=== PATIENT | female | born 1975 | race Caucasian/White ===

== ENCOUNTER 2016-09-15 20:20 | Emergency (ER) | payer BC, OTHER ==
[~2016-09-15] VITALS: Ht 154.9 cm; Wt 102.8 kg
[~2016-09-15 20:20] MED LIST: INDSR80 PO; PRM625 PO
[2016-09-15 20:25] VITALS: TEMP 37; Ht 154.9 cm; Wt 102.8 kg
[2016-09-15] MEDS ORDERED: DIPH1CAP11 PO (21:20)
[2016-09-15] MEDS ORDERED: CYM/30 PO (21:20)
[2016-09-15] MEDS ORDERED: KETOROLAC TROMETHAMINE 30 MG/ML VIAL IV STA (21:41)
--- NOTE | 2016-09-15 21:42 | EMERGENCY ROOM VISIT NOTE ---
History Report prepared by Elma: David Bobby Under the Supervision of: Dr. Luis Wen M.D. First contact with patient: 21:36 Chief Complaint: KNEEPAIN Stated Complaint: L KNEE PAIN,WARM TO TOUCH,POSSIBLE BLOOD CLOT History of Present Illness The patient is a 41 year old female who presents to the Emergency Room with complaints of worsening left knee pain that started a week ago. She denies any injury to the knee. The patient says that the pain started as an achiness, and has progressively worsened. She has no history of blood clots. The patient has no chronic medical problems. She denies any chest pain, shortness of breath, or abdominal pain. The patient has no chance of . She has no history of joint problems or any recent exposure to ticks. Source of History: patient Onset: A week ago Position: knee (left) Quality: ache Timing: worsening Associated Symptoms: No chest pain, No SOB, No abdominal pain Review of Systems See HPI for pertinent positives & negatives. A total of 10 systems reviewed and were otherwise negative. Past Medical & Surgical Medical Problems: (1) No chronic problems Old medical records were reviewed. Nurse's notes were reviewed and I agree with. Family History No pertinent family history Social History Smoking Status: Current Every Day Smoker Drug Use: none Marital Status: Occupation Status: unemployed Current/Historical Medications Scheduled Duloxetine Hcl (Cymbalta), 30 MG PO DAILY Lamotrigine (Lamictal), 100 MG PO DAILY Scheduled PRN Clorazepate Dipotassium (Clorazepate Dipotassium), 7.5 MG PO TID PRN for Anxiety Diphenhydramine Hcl (Sleep) (Sleep-Aid Maximum Strengt), 50-100 MG PO HS PRN for Sleep Oxycodone Immediate Rel Tab (Roxicodone Ir), 1-2 TAB PO Q4H PRN for Severe Pain Allergies Coded Allergies: Macrolides (Unverified Allergy, Mild, 02/01/15) Penicillins (Unverified Allergy, Mild, 02/01/15) Acetaminophen (Unverified Adverse Reaction, Mild, 02/01/15) Codeine (Unverified Adverse Reaction, Mild, 02/01/15) Morphine (Unverified Adverse Reaction, Mild, 02/01/15) N/V Oxycodone (Unverified Adverse Reaction, Mild, 02/01/15) Physical Exam Vital Signs Date Time Temp Pulse Resp B/P (MAP) Pulse Ox O2 Delivery O2 Flow Rate FiO2 09/16/16 00:24 72 18 152/87 97 09/15/16 20:25 37.0 85 20 193/106 99 Room Air Physical Exam General: Well developed well nourished non ill appearing middle aged female in no acute distress, breathing comfortably on room air. Normal speech HEENT: Normal cephalic atraumatic. Pupils are equal round and reactive to light. Extraocular movements are intact. Oropharynx is pink with moist mucous membranes. No swelling of the mouth lips or tongue. Neck: Supple with a midline trachea. No meningeal signs or stiffness, no JVD or bruits. No Stridor. Chest: Clear to auscultation bilaterally. No wheezes or rhonchi. No increased work of breathing. Heart: regular rate and rhythm. Abdomen: Soft nontender, nondistended without rebound guarding or rigidity. Extremities: Left knee tender with movement and palpation, mostly posteriorly and also superiorly, no redness, warmth or visible swelling. No motor sensation in leg. Spine/Back. Non tender to palpation. No CVA tenderness Skin: Good turgor without rashes. Neurologic exam: Cranial nerves two through 12 are intact. Medical Decision & Procedures ER Provider Diagnostic Interpretation: Radiology results as stated below per my review and radiologist interpretation: LEFT LOWER EXTREMITY VENOUS DOPPLER CLINICAL HISTORY: Left leg pain. COMPARISON STUDY: No previous studies for comparison. TECHNIQUE: Sonography of the deep venous system of the left lower extremity was performed. Compression and augmentation were evaluated. FINDINGS: The common femoral, superficial femoral and popliteal veins were compressible. Augmentation was normal. Flow was shown within the deep calf vessels. IMPRESSION: No evidence of deep venous thrombus within the left lower extremity. Electronically signed by: Estiven Bagley M.D. 09/15/2016 10:46 PM Dictated Date/Time: 09/15/2016 10:45 PM LEFT KNEE 1 OR 2 VIEWS ROUTINE CLINICAL HISTORY: Left knee pain. COMPARISON: None FINDINGS: Alignment of the left knee is anatomic. There is no acute fracture or suspicious lesion. There is a small left knee joint effusion. IMPRESSION: 1. No acute fracture. 2. Suspected small left knee joint effusion. Electronically signed by: Estiven Bagley M.D. 09/15/2016 10:32 PM Dictated Date/Time: 09/15/2016 10:32 PM Laboratory Results 09/15/16 21:55 Red Blood Count 4.45, Mean Corpuscular Volume 86.7, Mean Corpuscular Hemoglobin 28.3, Mean Corpuscular Hemoglobin Concent 32.6, Mean Platelet Volume 10.0, Neutrophils (%) (Auto) 62.5, Lymphocytes (%) (Auto) 29.4, Monocytes (%) (Auto) 7.0, Eosinophils (%) (Auto) 0.7, Basophils (%) (Auto) 0.2, Neutrophils # (Auto) 5.00, Lymphocytes # (Auto) 2.36, Monocytes # (Auto) 0.56, Eosinophils # (Auto) 0.06, Basophils # (Auto) 0.02 09/15/16 21:55 Test 09/15/16 21:55 White Blood Count 8.02 K/uL (4.8-10.8) Red Blood Count 4.45 M/uL (4.2-5.4) Hemoglobin 12.6 g/dL (12.0-16.0) Hematocrit 38.6 % (37-47) Mean Corpuscular Volume 86.7 fL (80-100) Mean Corpuscular Hemoglobin 28.3 pg (25-34) Mean Corpuscular Hemoglobin Concent 32.6 g/dl (32-36) Platelet Count 295 K/uL (130-400) Mean Platelet Volume 10.0 fL (7.4-10.4) Neutrophils (%) (Auto) 62.5 % Lymphocytes (%) (Auto) 29.4 % Monocytes (%) (Auto) 7.0 % Eosinophils (%) (Auto) 0.7 % Basophils (%) (Auto) 0.2 % Neutrophils # (Auto) 5.00 K/uL (1.4-6.5) Lymphocytes # (Auto) 2.36 K/uL (1.2-3.4) Monocytes # (Auto) 0.56 K/uL (0.11-0.59) Eosinophils # (Auto) 0.06 K/uL (0-0.5) Basophils # (Auto) 0.02 K/uL (0-0.2) RDW Standard Deviation 42.5 fL (36.4-46.3) RDW Coefficient of Variation 13.3 % (11.5-14.5) Immature Granulocyte % (Auto) 0.2 % Immature Granulocyte # (Auto) 0.02 K/uL (0.00-0.02) Erythrocyte Sedimentation Rate 22 mm/hr (0-21) Anion Gap 8.0 mmol/L (3-11) Est Creatinine Clear Calc Drug Dose 92.9 ml/min Estimated GFR () 95.9 Estimated GFR (Non- 82.7 BUN/Creatinine Ratio 17.4 (10-20) Uric Acid 4.7 mg/dl (2.6-7.2) Calcium Level 8.8 mg/dl (8.5-10.1) C-Reactive Protein 0.29 mg/dl (0-0.29) Human Chorionic Gonadotropin, Qual NEG (NEG) Lyme Disease IgG Antibody NEG (NEG) Lyme Disease IgM Antibody NEG (NEG) Laboratory studies as stated above per my review. Medications Administered Medications (Trade) Dose Ordered Sig/Crystal Route Start Time Stop Time Status Last Admin Dose Admin Ketorolac Tromethamine (Toradol Inj) 30 mg NOW STAT IV 09/15/16 21:41 09/15/16 21:45 DC 09/15/16 21:56 30 MG Oxycodone HCl (Roxicodone Immediate Rel 5MG Home Pack) 1 homepack UD ONCE PO 09/16/16 00:15 09/16/16 00:16 DC 09/16/16 00:20 1 HOMEPACK ED Course 2138: Past medical records reviewed. The patient was evaluated in room C9, and a complete history and physical examination were performed. 2140: Ordered Toradol Inj 30 mg IV. 0005: Upon reevaluation, the patient is resting. I discussed the results and treatment plan with her. She verbalized agreement of the treatment plan. The patient was discharged home. Medical Decision Differentials include, but are not limited to; infection, arthritis, DVT, Gaona' s cyst, Lyme disease. This patient comes in after having knee pain. On exam, she is neurologically and neurovascularly intact. There is no redness or warmth or anything to suggest a septic joint or significant infection. Ultrasound was obtained and does not show evidence of DVT or gaona's cyst. Her sedimentation rate is minimally elevated however her white count is not elevated nor is her CRP. She' s had no fever. Lyme titer was negative. This may be more musculoskeletal could be related to ligamentous or meniscus. She is going to rest and use anti- inflammatories, Bud wrap. He is back into activity as tolerated follow-up with orthopedist. She was happy the plan and discharged to home. Medication Reconcilliation Current Medication List: was personally reviewed by me Blood Pressure Screening Patient's blood pressure: Elevated blood pressure Blood pressure disposition: Elevated BP felt to be situational Impression Primary Impression: Left knee pain Scribe Attestation The scribe's documentation has been prepared under my direction and personally reviewed by me in its entirety. I confirm that the note above accurately reflects all work, treatment, procedures, and medical decision making performed by me. Departure Information Dispostion Home / Self-Care Prescriptions Oxycodone Immediate Rel Tab (ROXICODONE IR) 5 Mg Tab 1-2 TAB PO Q4H Y for Severe Pain, #15 TAB Prov: Luis Wen M.D. 09/16/16 Referrals Naeem Frederick M.D. (PCP) Patient Instructions My [facility] Additional Instructions Rest. Drink plenty of fluids. Use Bud wrap and crutches. Slowly ease back and activity as tolerated Use ibuprofen 600 mg every 6 hours, take with food For more severe pain, use OxyIR 5 mg, one or 2 pills every 4-6 hours as needed OxyIR may make you drowsy do not take before drinking, driving, working Return if: Increasing pain, fever or chills, worsening of symptoms, any new problems or concerns. Follow-up with your orthopedist tomorrow for recheck you may ultimately need an MRI Problem Qualifiers Primary Impression: Left knee pain Chronicity: acute Qualified Codes: M25.562 - Pain in left knee
[2016-09-15 22:13] LABS: BASO % 0.2 %; BASO ABS # 0.02 K/uL (0-0.2); COMPLETE YES; EOS % 0.7 %; HEMATOCRIT 38.6 % (37-47); IG% 0.2 %; LYMPH % 29.4 %; LYMPH ABS # 2.36 K/uL (1.2-3.4); MEAN CELL VOLUME 86.7 fL (80-100); MEAN CORPUSCULAR HEMOGLOBIN 28.3 pg (25-34); MEAN CORPUSCULAR HGB CONC 32.6 g/dl (32-36); NEUT % 62.5 %; PLATELET COUNT 295 K/uL (130-400); RED BLOOD COUNT 4.45 M/uL (4.2-5.4); WHITE BLOOD COUNT 8.02 K/uL (4.8-10.8)
--- NOTE | 2016-09-15 22:34 | DIAGNOSTIC IMAGING REPORT ---
LEFT KNEE 1 OR 2 VIEWS ROUTINE CLINICAL HISTORY: Left knee pain. COMPARISON: None FINDINGS: Alignment of the left knee is anatomic. There is no acute fracture or suspicious lesion. There is a small left knee joint effusion. IMPRESSION: 1. No acute fracture. 2. Suspected small left knee joint effusion. Electronically signed by: Estiven Bagley M.D. 09/15/2016 10:32 PM Dictated Date/Time: 09/15/2016 10:32 PM
[2016-09-15 22:41] LABS: PREG INTERNAL NEGATIVE QC NEG CLEAR BACKGROUND; PREG INTERNAL POSITIVE QC POS CONTROL LINE
--- NOTE | 2016-09-15 22:47 | DIAGNOSTIC IMAGING REPORT ---
LEFT LOWER EXTREMITY VENOUS DOPPLER CLINICAL HISTORY: Left leg pain. COMPARISON STUDY: No previous studies for comparison. TECHNIQUE: Sonography of the deep venous system of the left lower extremity was performed. Compression and augmentation were evaluated. FINDINGS: The common femoral, superficial femoral and popliteal veins were compressible. Augmentation was normal. Flow was shown within the deep calf vessels. IMPRESSION: No evidence of deep venous thrombus within the left lower extremity. Electronically signed by: Estiven Bagley M.D. 09/15/2016 10:46 PM Dictated Date/Time: 09/15/2016 10:45 PM
[2016-09-15 22:59] LABS: BUN/CREATININE RATIO 17.4 (10-20); C-REACTIVE PROTEIN 0.29 mg/dl (0-0.29); CALCIUM 8.8 mg/dl (8.5-10.1); CREATININE 0.86 mg/dl (0.60-1.20); POTASSIUM 4.1 mmol/L (3.5-5.1); URIC ACID 4.7 mg/dl (2.6-7.2)
[2016-09-15 23:07] LABS: LYME DISEASE AB IGG NEG (NEG); LYME DISEASE AB IGM NEG (NEG)
[2016-09-15] MEDS ORDERED: [UNRECOGNIZED DRUG - CODE] PO (23:32)
[2016-09-15] MEDS ORDERED: LAMO100T16 PO (23:32)
[2016-09-16] MEDS ORDERED: OXYC1TAB3 PO (00:12)
[2016-09-16] MEDS ORDERED: OXYCODONE IR HOME PACK PO ONE (00:15)
[2016-09-16 00:24] VITALS: BP 152/87; PULSE 72; O2SAT 97
== END 2016-09-16 00:24 | disposition home or self-care (01) ==
LOC: C.EDB 20:21 → C.EDC 09-16 00:24
DX: M25.562 Pain in left knee (principal); Z79.899 Other long term (current) drug therapy; F17.200 Nicotine dependence, unspecified, uncomplicated

== ENCOUNTER 2017-02-23 08:17 | Emergency (ER) | payer BC ==
[~2017-02-23] VITALS: Ht 154.9 cm; Wt 104.9 kg
[~2017-02-23 08:17] MED LIST changes: +CYM/30 PO; +DIPH1CAP11 PO; -INDSR80 PO; +LAMO100T16 PO; +OXYC-737 PO; -PRM625 PO; +[UNRECOGNIZED DRUG - CODE] PO
[2017-02-23] MEDS ORDERED: MoRPHine SULFATE 10 MG/ML CARP/VIAL IV STA (08:46)
--- NOTE | 2017-02-23 08:48 | EMERGENCY ROOM VISIT NOTE ---
History Report prepared by Elma: David Bobby Under the Supervision of: Dr. Adelfo Fraser M.D. First contact with patient: 08:35 Chief Complaint: CHEST PAIN Stated Complaint: CHEST PAIN,SOB,CHEST HEAVINESS, PAIN UP NECK History of Present Illness The patient is a 42 year old female who presents to the Emergency Room with complaints of waxing and waning chest pain that started an hour ago. She states that she feels burning and pain in her chest, which is worse on her left side. She adds that she has a heaviness in her chest in addition to some shortness of breath. The patient notes that the pain radiates into her neck and jaw. She says that intermittently, she feels that her heart is beating out of rhythm. The patient says that she has had episodes like this before, the last one being a year ago, and she was seen at the [facility] at that time. The patient says that her current pain is a 9 or a 10 out of 10 in severity. She notes that she has a history of a gastric bypass, but no history of gastrointestinal issues. She does smoke a half a pack of cigarettes per day. The patient denies any back pain, abdominal pain, leg pain, or worsened leg swelling. Source of History: patient, spouse/significant other Onset: An hour ago Position: chest Symptom Intensity: 9 or 10 out of 10 Quality: burning, other (pain, heaviness) Timing: waxes/wanes Associated Symptoms: + neck pain, No abdominal pain, No back pain Note: Associated symptoms: Jaw pain, intermittent heart beating out of rhythm. Denies leg pain, worsened leg swelling. Review of Systems All systems have been listed, reviewed, and are negative other than those previously mentioned. Please see Additional Medical History Sheet. Past Medical & Surgical Medical Problems: (1) No chronic problems Surgical Problems: (1) History of gastric bypass Family History No pertinent family history Social History Smoking Status: Current Every Day Smoker Drug Use: none Marital Status: Occupation Status: unemployed Current/Historical Medications Scheduled Duloxetine Hcl (Cymbalta), 30 MG PO DAILY Lamotrigine (Lamictal), 100 MG PO DAILY Ranitidine Hcl (Zantac), 150 MG PO BID Scheduled PRN Clorazepate Dipotassium (Clorazepate Dipotassium), 7.5 MG PO TID PRN for Anxiety Allergies Coded Allergies: Macrolides (Unverified Allergy, Mild, 02/23/17) Penicillins (Unverified Allergy, Mild, 02/23/17) Acetaminophen (Unverified Adverse Reaction, Mild, 02/23/17) Codeine (Unverified Adverse Reaction, Mild, 02/23/17) Morphine (Unverified Adverse Reaction, Mild, 02/23/17) N/V Oxycodone (Unverified Adverse Reaction, Mild, 02/23/17) Physical Exam Vital Signs Date Time Temp Pulse Resp B/P (MAP) Pulse Ox O2 Delivery O2 Flow Rate FiO2 02/23/17 13:26 71 18 126/67 99 Room Air 02/23/17 12:40 62 02/23/17 11:36 58 22 99 02/23/17 11:34 150/87 02/23/17 11:21 67 19 94 02/23/17 11:16 68 22 96 02/23/17 11:11 70 15 96 02/23/17 11:06 70 18 97 02/23/17 11:01 65 16 97 02/23/17 11:00 143/72 02/23/17 10:56 74 15 97 02/23/17 10:51 56 11 96 02/23/17 10:46 56 30 97 02/23/17 10:41 63 22 98 02/23/17 10:36 69 17 99 02/23/17 10:31 58 20 175/62 99 02/23/17 10:05 50 27 98 02/23/17 10:00 180/112 02/23/17 09:05 56 23 100 02/23/17 09:00 59 164/88 100 Nasal Cannula 2.0 02/23/17 08:57 100 Nasal Cannula 2.0 02/23/17 08:52 36.7 60 20 162/110 100 Nasal Cannula 2.0 02/23/17 08:47 62 02/23/17 08:47 57 22 100 02/23/17 08:47 97 Room Air 02/23/17 08:45 162/110 02/23/17 08:43 222/109 Physical Exam GENERAL: Patient awake, alert, oriented x 3. Patient follows commands. Patient appears anxious and in moderate distress. Patient does not appear toxic. Patient is adequately hydrated and well-nourished. SKIN: No erythema, pallor, cyanosis or rash HEENT: Normal head, pupils equal, reactive to light and accommodation. Oral cavity and posterior pharynx appear normal. Neck: Without adenopathy, no neck vein distention. LUNGS: Clear to auscultation. No wheezes, no rales, no rhonchi. HEART: No murmurs. No gallops. No rubs CHEST: Tenderness in left sternal border approximately 4th intercostal space. ABDOMEN: No masses, no rebound, no hepatomegaly or splenomegaly. EXTREMITIES: No signs of trauma. Slight swelling in left leg more than right. No calf or thigh tenderness. NEUROLOGIC: Cranial nerves II-XII within normal limits. No gross motor sensory function deficits. Medical Decision & Procedures ER Provider Diagnostic Interpretation: X ray results are stated below per my interpretation and the radiologist's interpretation. CHEST 2 VIEWS ROUTINE CLINICAL HISTORY: CHEST PAIN dyspnea COMPARISON STUDY: 09/23/2013 FINDINGS: The bones soft tissues and hemidiaphragms are normal. The cardiomediastinal silhouette is normal. The lungs are clear. The pulmonary vasculature is normal. IMPRESSION: Negative chest. The above report was generated using voice recognition software. It may contain grammatical, syntax or spelling errors. Electronically signed by: Franklyn Oropeza M.D. 02/23/2017 9:38 AM Dictated Date/Time: 02/23/2017 9:37 AM Laboratory Results 02/23/17 08:50 02/23/17 08:50 Test 02/23/17 08:50 02/23/17 10:49 Red Blood Count 4.86 M/uL (4.2-5.4) Mean Corpuscular Volume 84.8 fL (80-100) Mean Corpuscular Hemoglobin 28.4 pg (25-34) Mean Corpuscular Hemoglobin Concent 33.5 g/dl (32-36) RDW Standard Deviation 45.4 fL (36.4-46.3) RDW Coefficient of Variation 14.6 % (11.5-14.5) Mean Platelet Volume 9.7 fL (7.4-10.4) Erythrocyte Sedimentation Rate 11 mm/hr (0-21) D-Dimer 270 ug/L FEU (0-500) Anion Gap 7.0 mmol/L (3-11) Est Creatinine Clear Calc Drug Dose 102.6 ml/min Estimated GFR () 107.2 Estimated GFR (Non- 92.5 BUN/Creatinine Ratio 17.6 (10-20) Calcium Level 8.9 mg/dl (8.5-10.1) Bedside Troponin I < 0.030 ng/ml (0-0.045) Laboratory results as stated above per my review. Medications Administered Medications (Trade) Dose Ordered Sig/Crystal Route Start Time Stop Time Status Last Admin Dose Admin Morphine Sulfate (MoRPHine SULFATE INJ) 6 mg NOW STAT IV 02/23/17 08:46 02/23/17 08:48 DC 02/23/17 09:05 6 MG Ondansetron HCl (Zofran Inj) 4 mg Q1HWA PRN IV 02/23/17 09:00 03/25/17 08:59 02/23/17 10:35 4 MG Morphine Sulfate (MoRPHine SULFATE INJ) 6 mg PRN PRN IV 02/23/17 10:30 03/09/17 10:29 02/23/17 10:35 6 MG Al Hydrox/Mg Hydrox/Simethicone (Maalox Max Susp) 30 ml NOW STAT PO 02/23/17 11:17 02/23/17 11:18 DC 02/23/17 11:41 30 ML ECG Indication: chest pain Rate (beats per minute): 64 Rhythm: normal sinus Findings: no acute ischemic change, no ectopy ED Course 0836: Past medical records reviewed. The patient was evaluated in room B7. A complete history and physical examination was performed. 0846: Ordered Morphine Sulfate Inj 6 mg IV. 0900: Ordered Zofran Inj 4 mg IV PRN. 1030: Ordered Morphine Sulfate Inj 6 mg IV PRN. 1117: Ordered Maalox Max Susp 30 ml PO. 1120: I reevaluated the patient and she is still having significant chest pain. She has had 2 negative Troponin. We will do a D-dimer. 1326: Upon reevaluation, the patient appeared to have improvement of her symptoms. I discussed today's findings with her. She verbalized agreement of the treatment plan. She was discharged home. Medical Decision I considered multiple diagnoses including myocardial infarction, chest wall pain , pericarditis, myocarditis, aortic emergencies, pulmonary embolism, congestive heart failure, GI causes, and other significant cardiopulmonary disorders. Multiple labs, EKG and imaging were obtained. Please see above. Troponin is not elevated. D-dimer is not elevated. Chest x-rays unremarkable. On examination the patient does have some tenderness over the left sternal border consistent with costochondritis. The patient continued to complain of significant pain but this pain was relieved almost completely with Mylanta. The patient appears to have esophagitis which is consistent with her prior history of gastric bypass. The patient will be encouraged to take 150 mg of Zantac twice a day. She is to follow-up with her family physician. The patient was encouraged to stop smoking. She will also need her blood pressure recheck. Medication Reconcilliation Current Medication List: was personally reviewed by me Blood Pressure Screening Patient's blood pressure: Normal blood pressure Impression Primary Impression: Esophagitis Scribe Attestation The scribe's documentation has been prepared under my direction and personally reviewed by me in its entirety. I confirm that the note above accurately reflects all work, treatment, procedures, and medical decision making performed by me. Departure Information Dispostion Home / Self-Care Prescriptions Ranitidine Hcl (ZANTAC) 150 Mg Tab 150 MG PO BID, #30 TAB Prov: Adelfo Fraser M.D. 02/23/17 Patient Instructions My [facility] Additional Instructions 150 mg of Zantac twice a day. Continue any of your current medications as prescribed. Follow-up with your family physician regarding your chest pain. Stop smoking
[2017-02-23 08:52] VITALS: TEMP 36.7; Ht 154.9 cm; Wt 104.9 kg
[2017-02-23 08:57] VITALS: O2SAT 100
[2017-02-23 09:04] LABS: HEMATOCRIT 41.2 % (37-47); HEMOGLOBIN 13.8 g/dL (12.0-16.0); MEAN CELL VOLUME 84.8 fL (80-100); MEAN CORPUSCULAR HEMOGLOBIN 28.4 pg (25-34); MEAN CORPUSCULAR HGB CONC 33.5 g/dl (32-36); MEAN PLATELET VOLUME 9.7 fL (7.4-10.4); PLATELET COUNT 272 K/uL (130-400); RED CELL DISTRIBUTION WIDTH CV 14.6 % (11.5-14.5); RED CELL DISTRIBUTION WIDTH SD 45.4 fL (36.4-46.3); WHITE BLOOD COUNT 6.27 K/uL (4.8-10.8)
[2017-02-23] MEDS: ONDANSETRON INJ 2 MG/ML 2 ML VIAL IV PRN ×2 (09:04→10:35)
[2017-02-23 09:24] LABS: CALCIUM 8.9 mg/dl (8.5-10.1); CREATININE 0.78 mg/dl (0.60-1.20); POTASSIUM 3.9 mmol/L (3.5-5.1)
--- NOTE | 2017-02-23 09:40 | DIAGNOSTIC IMAGING REPORT ---
CHEST 2 VIEWS ROUTINE CLINICAL HISTORY: CHEST PAIN dyspnea COMPARISON STUDY: 09/23/2013 FINDINGS: The bones soft tissues and hemidiaphragms are normal. The cardiomediastinal silhouette is normal. The lungs are clear. The pulmonary vasculature is normal. IMPRESSION: Negative chest. The above report was generated using voice recognition software. It may contain grammatical, syntax or spelling errors. Electronically signed by: Franklyn Oropeza M.D. 02/23/2017 9:38 AM Dictated Date/Time: 02/23/2017 9:37 AM
[2017-02-23] MEDS ORDERED: MoRPHine SULFATE 10 MG/ML CARP/VIAL IV PRN (10:30)
[2017-02-23] MEDS ORDERED: ALUMINUM/MAGNESIUM/SIMETH (MAALOX MAX) 30 ML UDC PO STA (11:17)
[2017-02-23 13:26] VITALS: BP 126/67; PULSE 71; O2SAT 99
[2017-02-23] MEDS ORDERED: RANI150T3 PO (13:32)
[2017-05-26] MEDS ORDERED: ULT50X PO ×2 (11:19→11:29)
== END 2017-02-23 14:31 | disposition home or self-care (01) ==
LOC: C.EDB 08:19
DX: K20.9 Esophagitis, unspecified (principal); F17.200 Nicotine dependence, unspecified, uncomplicated; Z98.84 Bariatric surgery status; Z79.899 Other long term (current) drug therapy; Z88.0 Allergy status to penicillin; Z88.5 Allergy status to narcotic agent; Z88.6 Allergy status to analgesic agent; Z88.8 Allergy status to other drugs, medicaments and biological substances

== ENCOUNTER 2017-05-24 19:35 | Observation (INO) | payer BC ==
[~2017-05-24] VITALS: Ht 154.9 cm; Wt 97.2 kg
[~2017-05-24 19:35] MED LIST changes: -DIPH1CAP11 PO; -OXYC-737 PO; +RANI150T3 PO
[2017-05-24] MEDS ORDERED: ALUMINUM/MAGNESIUM SUSP 30 ML UDC ONE (21:10)
[2017-05-24] MEDS ORDERED: LIDOCAINE HCL 2% VISC SOLN 20 ML UDC ONE (21:10)
[2017-05-24] MEDS ORDERED: FAMOTIDINE 20 MG TAB ONE (21:11)
[2017-05-24] MEDS ORDERED: SUCRALFATE 1 GM TAB ONE (21:11)
[2017-05-24] MEDS ORDERED: ASPIRIN 324 MG CHEW ONE (22:06)
[2017-05-24] MEDS ORDERED: NITROGLYCERIN 0.4 MG SL PER TAB CHARGE ONE (22:07)
[2017-05-24] MEDS ORDERED: SODIUM CHLORIDE 0.9% 1000ML 1,000 ML IV STA (22:59)
[2017-05-24 23:13] LABS: BASO % 0.3 %; BASO ABS # 0.02 K/uL (0-0.2); EOS % 0.4 %; EOS ABS # 0.03 K/uL (0-0.5); HEMATOCRIT 40.1 % (37-47); HEMOGLOBIN 13.4 g/dL (12.0-16.0); IG# 0.01 K/uL (0.00-0.02); LYMPH % 25.9 %; LYMPH ABS # 2.06 K/uL (1.2-3.4); MEAN CORPUSCULAR HEMOGLOBIN 27.4 pg (25-34); MEAN CORPUSCULAR HGB CONC 33.4 g/dl (32-36); MEAN PLATELET VOLUME 10.2 fL (7.4-10.4); MONO % 7.7 %; MONO ABS # 0.61 K/uL (0.11-0.59); NEUT % 65.6 %; NEUT ABS # 5.22 K/uL (1.4-6.5); PLATELET COUNT 281 K/uL (130-400); RED CELL DISTRIBUTION WIDTH CV 14.5 % (11.5-14.5); RED CELL DISTRIBUTION WIDTH SD 43.5 fL (36.4-46.3); WHITE BLOOD COUNT 7.95 K/uL (4.8-10.8)
[2017-05-24] MEDS ORDERED: OMEP-334 PO (23:21)
[2017-05-24] MEDS ORDERED: SUCR1TAB29 PO ×3 (23:21→23:23)
[2017-05-24] MEDS ORDERED: PEDICHW50 PO (23:21)
[2017-05-24] MEDS ORDERED: PRM625 PO ×2 (23:24→23:31)
[2017-05-24] MEDS ORDERED: PYRI100T4 PO ×2 (23:24→23:30)
[2017-05-24] MEDS ORDERED: VTMB122500 PO ×2 (23:26→23:30)
[2017-05-24] MEDS ORDERED: CHOLCAP5 PO (23:27)
[2017-05-24] MEDS ORDERED: OPTIRAY 320 IV PRN (23:30)
[2017-05-24] MEDS ORDERED: CHOL500015 PO (23:30)
[2017-05-24] MEDS ORDERED: SERT100T PO (23:33)
[2017-05-24] MEDS ORDERED: MULT-859 PO (23:34)
--- NOTE | 2017-05-24 23:34 | EMERGENCY ROOM VISIT NOTE ---
History Report prepared by Elma: Libby Devlin Under the Supervision of: Dr. Seyd Corona M.D. First contact with patient: 22:56 Chief Complaint: CHEST PAIN Stated Complaint: CHEST PAIN, BURNING, L CHEST RADIATES TO L ARM/JULIA History of Present Illness The patient is a 42 year old female who presents to the Emergency Room with complaints of intermiteent episodes of chest pain that began 36 hours ago. She reports that she began experiencing chest pain yesterday while on her way to work. When she arrived she decided to call 911 because she was experiencing a burning and heavy sensation that worsens with walking, some shortness of breath , heart palpitations that feel like atrial fibrillation, and pain in her chest that radiates down her left arm. While in the ambulance, she was given 2 Nitro tablets and an Aspirin, which helped reduce her pain. When the patient arrived to the Emergency Department in [place], she tested negative for a perforated stomach or pulmonary embolism, noting they told her that her lungs were fine. The patient was discharged and followed up with her primary care physician today , who is trying to refer her to Dr. Preston, [facility] cardiology. She notes that the last time she had a stress test was a year and a half ago. The patient reports that she is a heavy smoker. Source of History: patient Onset: 36 hours ago Position: chest Symptom Intensity: episodes Quality: other (chest pain episodes) Timing: other (intermittent) Associated Symptoms: + SOB (some) Note: Associated symptoms include: burning and heavy sensation that worsens with walking, heart palpitations that feel like atrial fibrillation, and pain in her chest that radiates down her left arm. Review of Systems See HPI for pertinent positives & negatives. A total of 10 systems reviewed and were otherwise negative. Past Medical & Surgical Medical Problems: (1) Chest pain (2) No chronic problems Surgical Problems: (1) History of gastric bypass Family History No pertinent family history Social History Smoking Status: Current Every Day Smoker Drug Use: none Marital Status: Occupation Status: unemployed Current/Historical Medications Scheduled Cholecalciferol (Vitamin D3 Ultra Strength), 2 CAP PO QAM Clorazepate Dipotassium (Clorazepate Dipotassium), 3 TABS PO HS Cyanocobalamin (Vitamin B-12), 2 TABS PO QAM Estrogens, Conjugated (Premarin), 0.625 MG PO HS Lamotrigine (Lamictal), 100 MG PO HS Multiple Vitamins W/ Minerals (Hair/Skin/Nails/Biotin), 4 TABS PO QAM Omeprazole (Omeprazole Dr), 40 MG PO BID Pediatric Multiple Vitamin W/ (Flintstones Chewable), 2 TAB PO QAM Pyridoxine (Vitamin B6), 200 MG PO QAM Sertraline Hcl (Zoloft), 150 MG PO HS Sucralfate (Carafate), 1 TAB PO QID Sucralfate (Carafate), 1 TAB PO HS Allergies Coded Allergies: Macrolides (Unverified Allergy, Mild, 05/24/17) Penicillins (Unverified Allergy, Mild, 05/24/17) Acetaminophen (Unverified Adverse Reaction, Mild, 05/24/17) Codeine (Unverified Adverse Reaction, Mild, 05/24/17) Morphine (Unverified Adverse Reaction, Mild, 05/24/17) N/V Oxycodone (Unverified Adverse Reaction, Mild, 05/24/17) Physical Exam Vital Signs Date Time Temp Pulse Resp B/P (MAP) Pulse Ox O2 Delivery O2 Flow Rate FiO2 05/25/17 00:30 55 14 138/96 95 05/25/17 00:00 49 18 143/85 97 05/24/17 23:46 48 16 147/80 05/24/17 23:31 58 16 146/85 05/24/17 23:16 55 134/81 05/24/17 23:08 54 05/24/17 23:00 58 16 146/85 05/24/17 19:40 Room Air Physical Exam GENERAL: Awake, alert, well-appearing, in no acute distress HENT: Normocephalic, atraumatic. Oropharynx unremarkable. EYES: Normal conjunctiva. Sclera non-icteric. NECK: Supple. No nuchal rigidity. FROM. No JVD. RESPIRATORY: Clear to auscultation. CARDIAC: Regular rate, normal rhythm. Extremities warm and well perfused. Pulses equal. ABDOMEN: Soft, non-distended. No tenderness to palpation. No rebound or guarding. No masses. RECTAL: Deferred. MUSCULOSKELETAL: Chest examination reveals no tenderness. The back is symmetrical on inspection without obvious abnormality. There is no CVA tenderness to palpation. No joint edema. LOWER EXTREMITIES: Calves are equal size bilaterally and non-tender. No edema. No discoloration. NEURO: Normal sensorium. No sensory or motor deficits noted. SKIN: No rash or jaundice noted. Medical Decision & Procedures ER Provider Diagnostic Interpretation: Radiology results as stated below per my review and radiologist interpretation: CTA CHEST: No evidence of pulmonary embolus. Dependent atelectasis. Otherwise, lungs are clear. No pleural effusion or pneumothorax. Heart and pericardium are unremarkable. Enlargement of the main pulmonary artery measuring up to 3.7cm which can be seen n the setting of pulmonary arterial hypertension. 9mm hypodensity within the right thyroid gland which is indeterminate. Consider nonemergent sonogram evaluation. Trace paracardial effusion. Gallbladder is surgically absent. Post surgical changes within the bowel likely Sarah-en Y gastric bypass surgery. Low-density lesion within the spleen, which is nonspecific. Fat dense lesion within the left kidney measures 7mm which may represent angiomyolipoma. No acute osseous abnormality. Radiologist: Harley Walker MD. Laboratory Results 05/24/17 20:41 Test 05/24/17 20:30 05/24/17 20:39 05/24/17 20:41 05/24/17 22:59 Activated Partial Thromboplast Time 29.4 SECONDS (21.0-31.0) Partial Thromboplastin Ratio 1.1 Bedside D-Dimer 134 ng/mlFEU (0-450) Bedside Troponin I < 0.030 ng/ml (0-0.045) Anion Gap 8.0 mmol/L (3-11) Est Creatinine Clear Calc Drug Dose ml/min Estimated GFR () 100.9 Estimated GFR (Non- 87.0 BUN/Creatinine Ratio 15.1 (10-20) Calcium Level 8.8 mg/dl (8.5-10.1) Magnesium Level 2.1 mg/dl (1.8-2.4) Total Bilirubin 0.2 mg/dl (0.2-1) Direct Bilirubin < 0.1 mg/dl (0-0.2) Aspartate Amino Transf (AST/SGOT) 16 U/L (15-37) Alanine Aminotransferase (ALT/SGPT) 22 U/L (12-78) Alkaline Phosphatase 72 U/L (45-117) Total Creatine Kinase 55 U/L (26-192) Creatine Kinase MB < 0.5 ng/ml (0.5-3.6) Total Protein 7.5 gm/dl (6.4-8.2) Albumin 3.6 gm/dl (3.4-5.0) Lipase 145 U/L (73-393) Thyroid Stimulating Hormone (TSH) 1.430 uIu/ml (0.300-4.500) Creatine Kinase MB Ratio (0-3.0) Labs reviewed by ED physician. Medications Administered Medications (Trade) Dose Ordered Sig/Crystal Route Start Time Stop Time Status Last Admin Dose Admin Sodium Chloride 1,000 ml @ 999 mls/hr Q1H1M STAT IV 05/24/17 22:59 05/24/17 23:59 DC 05/24/17 22:59 999 MLS/HR Nitroglycerin (Nitroglycerin 2% Oint) 1 inch NOW STAT EXT 05/25/17 00:28 05/25/17 09:33 DC 05/25/17 00:47 1 INCH ECG Per My Interpretation Indication: chest pain Rate (beats per minute): 66 Rhythm: normal sinus Findings: other (normal axis, no ST elevation or depression) ED Course 2224: Past medical records reviewed. The patient was evaluated in room B7. A complete history and physical examination was performed. 2259: Ordered Sodium Chloride 1000ml @ 999 mls/hr IV. 2322: I reevaluated the patient, who states that she is feeling much better. Updated her on some test findings. 2330: Ordered Ioversol 100ml IV. Medical Decision Differential diagnosis: Etiologies such as cardiac ischemia, aortic dissection, pulmonary embolism, pneumonia, pneumothorax, musculoskeletal, infections, pericarditis, myocarditis , esophageal rupture, gastrointestinal, as well as others were entertained. This is a 42-year-old female who presents emergency department complaining of chest pain. Patient was to follow-up with Dr. Preston's office however has been not been able to get in to see him. Patient was given a GI cocktail Pepcid and Carafate in the emergency department. This did not do anything to the patient' s pain. She was then given nitro which totally relieved her pain. She was also given aspirin. Based on the fact that the patient's pain was relieved by nitro I did discuss the case with a [facility] hospitalist who agreed to admit the patient. This patient presented during a unscheduled [facility] downtime and was in the emergency department for an extended period of time. I Medication Reconcilliation Current Medication List: was personally reviewed by me Impression Primary Impression: Chest pain Scribe Attestation The scribe's documentation has been prepared under my direction and personally reviewed by me in its entirety. I confirm that the note above accurately reflects all work, treatment, procedures, and medical decision making performed by me. Departure Information Dispostion Home / Self-Care Referrals Lana Smith D.O. (PCP) Forms Call Back Authorization, HOME CARE DOCUMENTATION FORM, IMPORTANT VISIT INFORMATION Patient Instructions My [facility] Problem Qualifiers Primary Impression: Chest pain Chest pain type: unspecified Qualified Codes: R07.9 - Chest pain, unspecified
[2017-05-25] VITALS (10 sets, daily range): BP systolic 114–153; BP diastolic 71–87; PULSE 54–71; TEMP 36.6–36.9; O2SAT 94–96; Ht 154.9 cm; Wt 97.2 kg
[2017-05-25] MEDS ORDERED: NITROGLYCERIN 2% OINTMENT 30GM TUBE EXT STA (00:28)
[2017-05-25 01:00] LABS: ALBUMIN 3.6 gm/dl (3.4-5.0); ALT/SGPT 22 U/L (12-78); AST/SGOT 16 U/L (15-37); BLOOD UREA NITROGEN 12 mg/dl (7-18); CALCIUM 8.8 mg/dl (8.5-10.1); CARBON DIOXIDE 24 mmol/L (21-32); CREATININE 0.82 mg/dl (0.60-1.20); GLUCOSE 90 mg/dl (70-99); LIPASE 145 U/L (73-393); POTASSIUM 3.9 mmol/L (3.5-5.1); SODIUM 141 mmol/L (136-145)
[2017-05-25 01:07] LABS: ALKALINE PHOSPHATASE 72 U/L (45-117); CKMB < 0.5 ng/ml (0.5-3.6); TOTAL PROTEIN 7.5 gm/dl (6.4-8.2)
[2017-05-25 01:09] LABS: PTT PATIENT 29.4 SECONDS (21.0-31.0)
[2017-05-25] MEDS ORDERED: IV FLUIDS COMPLETED PRN (01:15)
[2017-05-25] MEDS ORDERED: TRAMADOL HCL 50 MG TAB PO ONE (01:36)
[2017-05-25] MEDS ORDERED: NICOTINE 14 MG/24 HR TDSY TD ONE (01:36)
[2017-05-25] MEDS ORDERED: POTASSIUM CHLORIDE 10 MEQ TABCR PO STA (01:56)
[2017-05-25] MEDS ORDERED: HYDROmorphone INJ 0.5 MG/0.5 ML SYR IV PRN (02:00)
[2017-05-25] MEDS ORDERED: NITROGLYCERIN 0.4 MG SL PER TAB CHARGE SL PRN (02:00)
[2017-05-25] MEDS ORDERED: LORAZEPAM 2 MG/ML 1 ML VIAL IV PRN (02:00)
[2017-05-25] MEDS ORDERED: PROCHLORPERAZINE INJ 5 MG in SYRINGE 4 ML IV PRN (02:00)
[2017-05-25] MEDS ORDERED: FAMOTIDINE 20MG/5ML IV PUSH IV STA (02:17)
[2017-05-25] MEDS: NSS + 20MEQ KCL 1000ML 1,000 ML IV SCH ×2 (02:54→21:54)
[2017-05-25] MEDS ORDERED: PNEUMOCOCCAL POLYSACCHARIDES 25 MCG/0.5 ML VIAL/SYR IM. ONE (03:45)
[2017-05-25] MEDS ORDERED: PNEUMOCOCCAL ADMINISTRATION CHARGE ONE (03:45)
[2017-05-25 05:36] LABS: BASO % 0.3 %; BASO ABS # 0.02 K/uL (0-0.2); EOS % 0.5 %; EOS ABS # 0.03 K/uL (0-0.5); HEMATOCRIT 37.1 % (37-47); IG# 0.01 K/uL (0.00-0.02); LYMPH % 29.9 %; LYMPH ABS # 1.89 K/uL (1.2-3.4); MEAN CELL VOLUME 82.6 fL (80-100); MEAN CORPUSCULAR HEMOGLOBIN 26.7 pg (25-34); MEAN CORPUSCULAR HGB CONC 32.3 g/dl (32-36); MONO % 6.3 %; NEUT % 62.8 %; NEUT ABS # 3.97 K/uL (1.4-6.5); PLATELET COUNT 234 K/uL (130-400); RED CELL DISTRIBUTION WIDTH CV 14.4 % (11.5-14.5); RED CELL DISTRIBUTION WIDTH SD 43.7 fL (36.4-46.3); WHITE BLOOD COUNT 6.32 K/uL (4.8-10.8)
[2017-05-25] MEDS: TRAMADOL HCL 50 MG TAB PO PRN ×3 (05:52→22:09)
[2017-05-25 06:07] LABS: CHOLESTEROL 170 mg/dl (0-200); LDL CHOLESTEROL CALCULATED 116 mg/dl
--- NOTE | 2017-05-25 06:37 | DIAGNOSTIC IMAGING REPORT ---
CHEST ONE VIEW PORTABLE CLINICAL HISTORY: CHEST PAIN dyspnea COMPARISON STUDY: 02/23/2017 FINDINGS: The bones soft tissues and hemidiaphragms are normal. The cardiomediastinal silhouette is normal. The lungs are clear. The pulmonary vasculature is normal. IMPRESSION: Negative chest. The above report was generated using voice recognition software. It may contain grammatical, syntax or spelling errors. Electronically signed by: Franklyn Oropeza M.D. 05/25/2017 6:36 AM Dictated Date/Time: 05/25/2017 6:35 AM
--- NOTE | 2017-05-25 07:02 | DIAGNOSTIC IMAGING REPORT ---
CT ANGIOGRAM OF THE CHEST CLINICAL HISTORY: Atypical chest pain COMPARISON STUDY: 09/19/2013 TECHNIQUE: Following the IV administration of 93 mL of [id number]-320, CT angiogram of the thorax was performed from the thoracic inlet to the lung bases utilizing the pulmonary embolus protocol. Images are reviewed in the axial, sagittal, and coronal planes. IV contrast was administered without complication. MIP imaging was performed. A dose lowering technique was utilized adhering to the principles of ALARA. CT DOSE: FINDINGS: No pathologically enlarged axillary mediastinal or hilar lymph nodes were visualized. There was no evidence of thoracic aortic dilatation. There were no pulmonary artery filling defects to indicate acute pulmonary embolism. There is dilatation of the main pulmonary artery segment. This may indicate pulmonary arterial hypertension. No pleural effusions are visualized. There are mild dependent atelectatic changes. There is respiratory motion artifact. There is no focal pulmonary consolidation. There are postsurgical changes of a prior gastric bypass. There is a 9 mm right lobe thyroid nodule. There is an indeterminate 15 mm hypodensity within the spleen. There is an 8 mm fat-containing lesion within the kidney likely representing an angiomyolipoma IMPRESSION: 1. No evidence of acute pulmonary embolism 2. Dilatation of the main pulmonary artery measuring 37 mm. This may indicate partial hypertension. 3. Nonspecific 15 mm hypodensity within the spleen 4. Partially visualized 8 mm fat-containing lesion within the kidney likely representing an angiomyolipoma Electronically signed by: Clem Nair M.D. 05/25/2017 7:01 AM Dictated Date/Time: 05/25/2017 6:57 AM
[2017-05-25] MEDS: CEROVITE ADV FORMULA TAB PO SCH (07:43)
[2017-05-25] MEDS: SUCRALFATE 1 GM TAB PO SCH ×4 (07:43→20:56)
[2017-05-25] MEDS: PANTOprazole SOD 40 MG TAB PO SCH ×2 (07:43→20:56)
[2017-05-25] MEDS: ENOXAPARIN 40 MG/0.4 ML SYR SC SCH (07:48)
--- NOTE | 2017-05-25 07:48 | HISTORY & PHYSICAL EXAMINATION ---
DATE OF ADMISSION: 05/25/2017 PRIMARY CARE DOCTOR: Dr. Smith CHIEF COMPLAINT: Chest pain. HISTORY OF PRESENT ILLNESS: History obtained from the patient and records. Medical history significant for mood/anxiety disorder, ongoing tobacco abuse, chronic bradycardia, peptic ulcer disease, history of MRSA, gastric bypass surgery, BERNICE (not requiring appliance since bariatric surgery) Patient had a recent EGD about 2 months ago which showed ulcers. Patient currently on home PPI, sucralfate regimen. Two days ago, patient noted left-sided chest discomfort going to the LUE and back, some shortness of breath, burning and pleuritic in quality, intermittent symptoms. Patient was seen at the ER at [facility] a few days ago. No PE or perforated stomach on imaging as per records. Patient sent home. Intermittent chest pain symptoms, not related to exertion. No unusual stress at home. Family doctor was to refer patient to a [facility] alumni secretary. Her GI specialist scheduled her for repeat EGD in Jun, 2017. At the Emergency Room, patient given Aspirin. Improvement of chest pain with nitro and GI cocktail. MEDICAL HISTORY: As above. Patient had the flu last month status post Tamiflu Rx. SURGERIES: She has had bariatric surgery, hysterectomy, cholecystectomy. HOME MEDICATIONS: Include omeprazole, pyridoxine, pediatric Zoloft, sucralfate. ALLERGIES: TO PERCOCET, CODEINE, MORPHINE, PENICILLIN, MACROLIDE. FAMILY HISTORY: Heart disease. PERSONAL AND SOCIAL HISTORY: Half pack daily. No chronic intake of alcoholic beverages. 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 REVIEW OF SYSTEMS: As per HPI, all 10 systems reviewed, all other ROS negative. PHYSICAL EXAMINATION: VITAL SIGNS: Blood pressure was noted to be 138/96, pulse 55, respiratory rate 14, temperature 36.7, sats 94 on room air. GENERAL: Noted to be anxious, obese, no respiratory distress. SKIN: Normal color, warm. HEENT: Clyman palpebral conjunctivae. No ptosis. Dry mucosa. NECK: Short neck. Supple. CHEST: Decreased breath sounds. No tenderness. HEART: Bradycardic. No murmur. ABDOMEN: Soft, distention, nontender. EXTREMITIES: Minimal LE edema, no tenderness. No gross deformities. NEUROLOGIC: Coherent. No gross focality. LABORATORY DATA: Hemoglobin was noted to be 13.4, hematocrit 40.1, white cell count 7.35, platelets 281. Sodium 140, potassium 3.9, chloride 109, CO2 of 24, BUN 12, creatinine 0.8, glucose was noted to be 90. LFTs, lipase normal. TSH 1.43. CTA initial read, no PE, atelectasis, pulmonary artery enlargement, possible pulmonary artery hypertension, trace pericardial effusion. Gallbladder surgically absent post gastric bypass. EKG done at the ER could not be located at time of dictation. ASSESSMENT: 1. Chest pain. differentials : cardiac : possible acute coronary syndrome, pericarditis (trace pericardial effusion on initial CT read) gastrointestinal : uncontrolled GERD, hx PUD ongoing PPI, Carafate regimen . 2. Chronic bradycardia. 3. Past tobacco abuse. 4. History of bariatric surgery. 5. Past history of sleep apnea. PLAN: Observation PCU. Follow cardiac markers 2D echo RE chest pain, pericardial effusion on CT. ASA CAD prevention until ACS definitively ruled out Cardio consult (Dr. Preston) as per the patient request for chest pain, Trial of H2 kendall to be added to GI regimen. Patient may benefit from inpatient GI consult for burning chest pain symptoms once cardiac etiology of chest pain ruled out. Nicotine patch. DVT prophylaxis, Lovenox sq Full code. MTDD
[2017-05-25] MEDS: ASPIRIN 81 MG ECTAB PO SCH (08:39)
[2017-05-25] MEDS ORDERED: PERFLUTREN LIPID MICROSPHERE (DEFINITY) IV ONE (09:15)
--- NOTE | 2017-05-25 11:15 | Cardiology Consultation ---
Cardiology Consultation Date of Consultation: May 25, 2017 Requesting Physician: Dr. Coughlin Attending Grass Cutter: Dr. Preston (Zulema Graves PA-C) History of Present Illness Patient is a 42 year old female with history of tobacco abuse, chronic sinus bradycardia per records, history of gastric bypass surgery, BERNICE (no longer using CPAP), anxiety/mood disorder, and history of recent diagnosis of gastric ulcerations noted on EGD several months ago. Patient denies a history of cardiovascular disease. No history of IN, CHF, valvular disease, murmur, or arrhythmia. She reports having a dobutamine stress echo in 2016 which was normal. She had records from [facility] with her. On Monday, driving to work, patient developed subscapular back pain, radiation to chest with associated left arm tingling. She felt significantly nauseated and called 911. She was taken to [facility] and work up unremarkable. She was discharged home. She reports waxing/waning symptoms over the last 24 hours. She ate lunch yesterday and laid down to rest, developing worsening of her chest pressure/ burning sensation. brought her to CT for further evaluation. In ER symptoms mildly improved with GI cocktail. Also aided by SL nitro. EKG unremarkable. Chest CT demonstrated possible small pericardial effusion. Negative cardiac enzymes x2. Since admission, she continues to note intermittent chest pain/pressure/burning sensation. Symptoms last several minutes and resolve spontaneously. At time of consult, she reports 3/10 chest pain. No radiation. She feels her symptoms are "different" than prior diagnosis of gastric ulcerations. No melena, hematochezia , hemoptysis. No unusual dyspnea, orthopnea, PND. She notes recent cough. No fever or chills. She notes mild pleuritic chest pain, unchanged for many years. (Zulema Graves PA-C) Past Medical/Surgical History Problem List: Medical Problems: (1) Chest pain (2) No chronic problems Surgical Problems: (1) History of gastric bypass (Zulema Graves PA-C) Family History No pertinent family history (Zulema Graves PA-C) No pertinent family history (Milind Preston M.D.) Social History Smoking Status: Current Every Day Smoker Drug Use: none Marital Status: Occupation: unemployed (Zulema Graves PA-C) Review Of Systems General: The patient denies weight change, night sweats, fever, chills. Head: The patient denies headache and prior head trauma. Cardiovascular: The patient denies chest pain or chest discomfort, dyspnea on exertion, palpitations, PND, orthopnea, edema, spontaneous shortness of breath, syncope and near syncope. Pulmonary: The patient denies cough, wheeze, pleurisy, hemoptysis, sputum, and excessive snoring. Gastrointestinal: The patient denies nausea, vomiting, diarrhea, constipation, bloating, hematemesis, hematochezia, and abdominal pain. Skin: The patient denies diaphoresis and rash. Musculoskeletal: The patient denies joint pain, joint swelling, myalgia, back pain, neck pain and prior injuries. Neurological: The patient denies prior stroke and seizures (Zulema Graves PA-C) Allergies Coded Allergies: Macrolides (Unverified Allergy, Mild, 05/24/17) Penicillins (Unverified Allergy, Mild, 05/24/17) Acetaminophen (Unverified Adverse Reaction, Mild, 05/24/17) Codeine (Unverified Adverse Reaction, Mild, 05/24/17) Morphine (Unverified Adverse Reaction, Mild, 05/24/17) N/V Oxycodone (Unverified Adverse Reaction, Mild, 05/24/17) Medications Reported Home Medications Medications Dose Route/Sig Max Daily Dose Days Date Category Dose Instructions Hair/Skin/Nails/Biotin (Multiple Vitamins W/ Minerals) 1 Tab Tab 4 Tabs PO QAM 05/24/17 Reported gummies Zoloft (Sertraline Hcl) 100 Mg Tab 150 Mg PO HS 05/24/17 Reported Premarin (Estrogens Conjugated) 0.625 Mg Tab 0.625 Mg PO HS 05/24/17 Reported Vitamin B-12 (Cyanocobalamin) 2,500 Mcg Subl 2 Tabs PO QAM 05/24/17 Reported Vitamin B6 (Pyridoxine HCl) 100 Mg Tab 200 Mg PO QAM 05/24/17 Reported Vitamin D3 Ultra Strength (Cholecalciferol) 5,000 Unit Cap 2 Cap PO QAM 05/24/17 Reported Carafate (Sucralfate) 1 Gm Tab 1 Tab PO HS 05/24/17 Reported Carafate (Sucralfate) 1 Gm Tab 1 Tab PO QID 05/24/17 Reported Flintstones Chewable (Pediatric Multiple Vitamin W/) 1 Chw Chw 2 Tab PO QAM 05/24/[address] (Omeprazole) 40 Mg Cap 40 Mg PO BID 05/24/17 Reported Clorazepate Dipotassium 7.5 Mg Tab 3 Tabs PO HS 02/01/15 Reported Lamictal (Lamotrigine) 100 Mg Tab 100 Mg PO HS 02/01/15 Reported (Zulema Graves PA-C) Physical Exam Vital Signs (Last 8hrs): Last 8 Hrs Date Time Temp Pulse Resp B/P (MAP) Pulse Ox O2 Delivery O2 Flow Rate FiO2 05/25/17 07:55 94 Room Air 05/25/17 07:21 36.6 71 18 114/71 (85) 94 05/25/17 04:18 36.6 54 18 118/77 (91) 96 Room Air 05/25/17 04:00 94 Room Air 05/25/17 02:28 36.7 62 18 153/87 94 Room Air 05/25/17 01:57 47 15 199/91 97 General Appearance: Alert and Oriented x3. NAD. Head: Normocephalic Atraumatic. Eyes: PERRLA, EOMI, conjunctiva and sclera clear Neck: Supple. No carotid bruits noted. No JVD. No HJD. Respiratory: Breath sounds clear to auscultation bilaterally. No w/r/r. Cardiovascular: Reg rate and rhythm. S1 and S2 noted. No murmurs, rubs, gallops. PMI non displace. Abdomen: Normal bowel sounds, soft nontender. no abdominal bruits. Extremities: No edema, no clubbing or cyanosis. distal pulses 2/4 bilaterally. Neuro: No focal deficits. Psychiatric: Normal affect. (Zulema Graves PA-C) Data Last 24 Hours Test 05/24/17 20:30 05/24/17 20:41 05/24/17 22:59 05/25/17 05:21 Activated Partial Thromboplast Time 29.4 SECONDS Partial Thromboplastin Ratio 1.1 White Blood Count 7.95 K/uL 6.32 K/uL Red Blood Count 4.89 M/uL 4.49 M/uL Hemoglobin 13.4 g/dL 12.0 g/dL Hematocrit 40.1 % 37.1 % Mean Corpuscular Volume 82.0 fL 82.6 fL Mean Corpuscular Hemoglobin 27.4 pg 26.7 pg Mean Corpuscular Hemoglobin Concent 33.4 g/dl 32.3 g/dl Platelet Count 281 K/uL 234 K/uL Mean Platelet Volume 10.2 fL 10.0 fL Neutrophils (%) (Auto) 65.6 % 62.8 % Lymphocytes (%) (Auto) 25.9 % 29.9 % Monocytes (%) (Auto) 7.7 % 6.3 % Eosinophils (%) (Auto) 0.4 % 0.5 % Basophils (%) (Auto) 0.3 % 0.3 % Neutrophils # (Auto) 5.22 K/uL 3.97 K/uL Lymphocytes # (Auto) 2.06 K/uL 1.89 K/uL Monocytes # (Auto) 0.61 K/uL 0.40 K/uL Eosinophils # (Auto) 0.03 K/uL 0.03 K/uL Basophils # (Auto) 0.02 K/uL 0.02 K/uL RDW Standard Deviation 43.5 fL 43.7 fL RDW Coefficient of Variation 14.5 % 14.4 % Immature Granulocyte % (Auto) 0.1 % 0.2 % Immature Granulocyte # (Auto) 0.01 K/uL 0.01 K/uL Sodium Level 141 mmol/L Potassium Level 3.9 mmol/L Chloride Level 109 mmol/L Carbon Dioxide Level 24 mmol/L Anion Gap 8.0 mmol/L Blood Urea Nitrogen 12 mg/dl Creatinine 0.82 mg/dl Est Creatinine Clear Calc Drug Dose ml/min Estimated GFR () 100.9 Estimated GFR (Non- 87.0 BUN/Creatinine Ratio 15.1 Random Glucose 90 mg/dl Calcium Level 8.8 mg/dl Magnesium Level 2.1 mg/dl Total Bilirubin 0.2 mg/dl Direct Bilirubin < 0.1 mg/dl Aspartate Amino Transf (AST/SGOT) 16 U/L Alanine Aminotransferase (ALT/SGPT) 22 U/L Alkaline Phosphatase 72 U/L Total Creatine Kinase 55 U/L Creatine Kinase MB < 0.5 ng/ml Creatine Kinase MB Ratio Troponin I < 0.015 ng/ml < 0.015 ng/ml Total Protein 7.5 gm/dl Albumin 3.6 gm/dl Lipase 145 U/L Thyroid Stimulating Hormone (TSH) 1.430 uIu/ml Erythrocyte Sedimentation Rate 13 mm/hr Prothrombin Time 10.7 SECONDS Prothromb Time International Ratio 1.0 Triglycerides Level 102 mg/dl Cholesterol Level 170 mg/dl HDL Cholesterol 34 mg/dl LDL Cholesterol, Calculated 116 mg/dl VLDL Cholesterol, Calculated 20 mg/dl Cholesterol/HDL Ratio 5.0 Imaging: Chest CTA: IMPRESSION: 1. No evidence of acute pulmonary embolism 2. Dilatation of the main pulmonary artery measuring 37 mm. This may indicate partial hypertension. 3. Nonspecific 15 mm hypodensity within the spleen 4. 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 No significant pauses. Occ PVC (Zulema Graves PA-C) Assessment & Plan 1. Atypical chest pain x3 days -negative cardiac enzymes -non ischemic EKG -echo report pending -waxing/waning symptoms persist 2. Gastric ulcers - EGD several months ago. -on PPI and Carafate 3. Chronic tobacco abuse PLAN: Unremarkable cardiac work up thus far, 3 days of chest pain without elevation in cardiac enzymes, suggest non cardiac etiology. Echo results pending. Patient does have risk factors for underlying ischemic heart disease. Will proceed with dobutamine stress echo (patient failed to reach target HR on exercise stress test in 2016). Further recommendations pending review of stress test results. If stress test is normal, recommend repeat GI evaluation. ? Need for repeat EGD. Case discussed with Dr. Preston. Will follow. (Zulema Graves PA-C) Patient was seen and examined chart medications and laboratory studies reviewed. Assessment and plan as noted above. Patient is a 42-year-old female with several days history of nearly persistent chest pain and discomfort without EKG evolution or enzyme abnormality and normal structural heart on echocardiogram. Findings suggest nonischemic/ noncardiac origin of patient's complaints. Dobutamine stress echocardiography was performed today with heart rate to greater than 90% age-predicted maximum heart rate without evidence of ischemia by EKG or echocardiographic analysis. Blood pressure response during the stress was hypertensive. Would consider treatment of hypertension assessment for alternate source of noncardiac chest discomfort Milind Preston MD (Milind Preston M.D.)
--- NOTE | 2017-05-25 11:20 | ECHOCARDIOGRAM REPORT ---
*NOTICE TO RECEIVING DEMOCRAT AGENCY This information is strictly Confidential and protected under [place] law. [place] law prohibits you from making any further disclosure of this information unless further disclosure is expressly permitted by the written consent of the person to whom it pertains or is authorized by law. A general authorization for the release of medical or other information is not sufficient for this purpose. Hospital accepts no responsibility if the information is made available to any other person, INCLUDING THE PATIENT. Interpretation Summary * Name: SOPHIA BOWERS Study Date: 05/25/2017 08:47 AM BP: 118/77 mmHg * Patient Location: [facility] HR: 54 * : 1975 (M/d/yyyy) Gender: Female Height: 60 in * Age: 42 yrs Ethnicity: CA Weight: 213 lb * Ordering Physician: Carlos A Coughlin * Referring Physician: Self, Referred * Performed By: Ligia Reed RDCS * * Reason For Study: Chest Pain * BSA: 1.9 m2 * -- Conclusions -- * Normal LV chamber size and wall thickness. * Normal LV systolic function, EF 60-65%. * No segmental left ventricular wall motion abnormalities are noted. * Normal diastolic function. * No significant valvular pathology. Procedure Details * A complete two-dimensional transthoracic echocardiogram was performed (2D, M-mode, Doppler and color flow Doppler). * The study was technically difficult. * The study was technically difficult, but visualization was adequate with the administration of Definity ultrasound contrast. * There were technical limitations due to patient'sbody habitus * A contrast injection of Definity was performed to improve assessment of LV function. * Contrast was injected into an intravenous site in the left arm. * One vial of Definity ultrasound contrast was diluted in normal saline to a total volume of 10 ml. A total of '2' ml of solution was administered during imaging. * Lot # [id number] of Definity utilized for procedure. * Expiration date 1Apr19. * The attending nurse who injected the contrast agent was Mirna Garzon RN. Left Ventricle * The left ventricle is normal in size. * There is normal left ventricular wall thickness. * Ejection Fraction = 60-65%. * Left ventricular systolic function is normal. * No segmental left ventricular wall motion abnormalities are noted. * The left ventricular wall motion is normal. Right Ventricle * The right ventricular cavity size is normal (basal dimension <4.2 cm in right ventricular apical 4-chamber view). * The right ventricular systolic function is normal as assessed by tricuspid annular plane systolic excursion (TAPSE) (normal >1.5 cm). Atria * The left atrial size is normal. * Right atrial size is normal. * No ASD detected; PFO is not assessed. Mitral Valve * The mitral valve is normal in structure and function. Tricuspid Valve * The tricuspid valve is normal in structure and function. Aortic Valve * The aortic valve is not well visualized. * No hemodynamically significant valvular aortic stenosis. * There is no significant aortic regurgitation. Pulmonic Valve * The pulmonary valve is not well seen, but the Doppler examination is normal without significant regurgitation or stenosis. Great Vessels * The aortic root and proximal ascending aorta are normal sized. Pericardium/Pleural * There is no pericardial effusion. Left Ventricular Diastolic Function * Pulse wave TDI of the anterior and posterior mitral annulas demonstrates normal LV relaxation MMode 2D Measurements and Calculations IVSd 0.93 cm IVSs 1.3 cm LVIDd 3.8 cm LVIDs 2.4 cm LVPWd 0.94 cm LVPWs 1.2 cm IVS/LVPW 0.99 FS 35.8 % EDV(Teich) 61.1 ml ESV(Teich) 20.6 ml EF(Teich) 66.2 % EDV(cubed) 53.9 ml ESV(cubed) 14.2 ml EF(cubed) 73.6 % % IVS thick 44.0 % % LVPW thick 28.0 % LV mass(C)d 105.8 grams LV mass(C)dI 55.2 grams/m\S\2 LV mass(C)s 90.8 grams LV mass(C)sI 47.4 grams/m\S\2 SV(Teich) 40.4 ml SI(Teich) 21.1 ml/m\S\2 SV(cubed) 39.7 ml SI(cubed) 20.7 ml/m\S\2 Ao root diam 2.4 cm Ao root area 4.6 cm\S\2 ACS 2.1 cm LA dimension 3.1 cm asc Aorta Diam 2.9 cm LA/Ao 1.3 LVAd ap4 33.3 cm\S\2 LVLd ap4 8.8 cm EDV(MOD-sp4) 105.2 ml EDV(sp4-el) 106.6 ml LVAs ap4 16.3 cm\S\2 LVLs ap4 6.8 cm ESV(MOD-sp4) 33.4 ml ESV(sp4-el) 33.2 ml EF(MOD-sp4) 68.2 % EF(sp4-el) 68.9 % LVAd ap2 26.3 cm\S\2 LVLd ap2 7.9 cm EDV(MOD-sp2) 74.0 ml EDV(sp2-el) 74.3 ml LVAs ap2 15.0 cm\S\2 LVLs ap2 6.8 cm ESV(MOD-sp2) 29.5 ml ESV(sp2-el) 28.1 ml EF(MOD-sp2) 60.1 % EF(sp2-el) 62.2 % LVLd %diff -11.56 % EDV(MOD-bp) 92.9 ml LVLs %diff -0.68 % ESV(MOD-bp) 31.7 ml EF(MOD-bp) 65.9 % SV(MOD-sp4) 71.8 ml SI(MOD-sp4) 37.4 ml/m\S\2 SV(MOD-sp2) 44.5 ml SI(MOD-sp2) 23.2 ml/m\S\2 SV(MOD-bp) 61.3 ml SI(MOD-bp) 32.0 ml/m\S\2 SV(sp4-el) 73.4 ml SI(sp4-el) 38.3 ml/m\S\2 SV(sp2-el) 46.2 ml SI(sp2-el) 24.1 ml/m\S\2 Doppler Measurements and Calculations MV E max leo 71.8 cm/sec MV A max leo 45.1 cm/sec MV E/A 1.6 MV dec time 0.23 sec Ao V2 max 136.4 cm/sec Ao max PG 7.4 mmHg Ao max PG (full) 1.9 mmHg LV V1 max PG 5.5 mmHg LV V1 max 117.4 cm/sec PA V2 max 95.6 cm/sec PA max PG 3.7 mmHg
[2017-05-25] MEDS ORDERED: METOPROLOL TARTRATE 1 MG/ML VIAL ONE ×2 (12:54)
[2017-05-25] MEDS ORDERED: DOBUTamine HCL 12.5 MG/ML 20 ML VIAL ONE (12:54)
[2017-05-25] MEDS ORDERED: ATROPINE SULFATE 0.1 MG/ML 5ML SYR ONE ×2 (12:54→12:55)
--- NOTE | 2017-05-25 14:27 | Progress Note ---
Medicine Progress Note Date & Time of Visit: May 25, 2017 at 14:06. Subjective Pt was seen and examined Lying in bed with no distress with at bedside Pt said that she continue to have tenderness in back radiating to chest Pt said that pain worsening with deep breathing and coughing she said that she had an EGD done about 2 months ago Denies any SOB, palpitation and dizziness Objective Last 8 Hrs Date Time Temp Pulse Resp B/P (MAP) Pulse Ox O2 Delivery O2 Flow Rate FiO2 05/25/17 12:00 94 Room Air 05/25/17 11:39 36.6 57 16 117/72 (87) 95 05/25/17 07:55 94 Room Air 05/25/17 07:21 36.6 71 18 114/71 (85) 94 Physical Exam: General- No acute distress Head- atraumatic Eyes- PERRL, EOMI ENT- oropharynx clear Neck- supple, no JVD Lungs- clear to auscultation Heart- regular rhythm Abdomen- normal bowel sounds, soft, obese Extremities- no calf tenderness Neuro- alert, oriented x 3; PERRL, EOMI Laboratory Results: Last 24 Hours Test 05/24/17 20:30 05/24/17 20:41 05/24/17 22:59 05/25/17 05:21 Activated Partial Thromboplast Time 29.4 SECONDS Partial Thromboplastin Ratio 1.1 White Blood Count 7.95 K/uL 6.32 K/uL Red Blood Count 4.89 M/uL 4.49 M/uL Hemoglobin 13.4 g/dL 12.0 g/dL Hematocrit 40.1 % 37.1 % Mean Corpuscular Volume 82.0 fL 82.6 fL Mean Corpuscular Hemoglobin 27.4 pg 26.7 pg Mean Corpuscular Hemoglobin Concent 33.4 g/dl 32.3 g/dl Platelet Count 281 K/uL 234 K/uL Mean Platelet Volume 10.2 fL 10.0 fL Neutrophils (%) (Auto) 65.6 % 62.8 % Lymphocytes (%) (Auto) 25.9 % 29.9 % Monocytes (%) (Auto) 7.7 % 6.3 % Eosinophils (%) (Auto) 0.4 % 0.5 % Basophils (%) (Auto) 0.3 % 0.3 % Neutrophils # (Auto) 5.22 K/uL 3.97 K/uL Lymphocytes # (Auto) 2.06 K/uL 1.89 K/uL Monocytes # (Auto) 0.61 K/uL 0.40 K/uL Eosinophils # (Auto) 0.03 K/uL 0.03 K/uL Basophils # (Auto) 0.02 K/uL 0.02 K/uL RDW Standard Deviation 43.5 fL 43.7 fL RDW Coefficient of Variation 14.5 % 14.4 % Immature Granulocyte % (Auto) 0.1 % 0.2 % Immature Granulocyte # (Auto) 0.01 K/uL 0.01 K/uL Sodium Level 141 mmol/L Potassium Level 3.9 mmol/L Chloride Level 109 mmol/L Carbon Dioxide Level 24 mmol/L Anion Gap 8.0 mmol/L Blood Urea Nitrogen 12 mg/dl Creatinine 0.82 mg/dl Est Creatinine Clear Calc Drug Dose ml/min Estimated GFR () 100.9 Estimated GFR (Non- 87.0 BUN/Creatinine Ratio 15.1 Random Glucose 90 mg/dl Calcium Level 8.8 mg/dl Magnesium Level 2.1 mg/dl Total Bilirubin 0.2 mg/dl Direct Bilirubin < 0.1 mg/dl Aspartate Amino Transf (AST/SGOT) 16 U/L Alanine Aminotransferase (ALT/SGPT) 22 U/L Alkaline Phosphatase 72 U/L Total Creatine Kinase 55 U/L Creatine Kinase MB < 0.5 ng/ml Creatine Kinase MB Ratio Troponin I < 0.015 ng/ml < 0.015 ng/ml Total Protein 7.5 gm/dl Albumin 3.6 gm/dl Lipase 145 U/L Thyroid Stimulating Hormone (TSH) 1.430 uIu/ml Erythrocyte Sedimentation Rate 13 mm/hr Prothrombin Time 10.7 SECONDS Prothromb Time International Ratio 1.0 Triglycerides Level 102 mg/dl Cholesterol Level 170 mg/dl HDL Cholesterol 34 mg/dl LDL Cholesterol, Calculated 116 mg/dl VLDL Cholesterol, Calculated 20 mg/dl Cholesterol/HDL Ratio 5.0 Assessment & Plan Chest Pain. Seems like atypical in nature Pleuritis type EKG showed no ischemic changes Troponinx3 negative CTA chest showed no PE cardio on board, will go for dobutamine stress test Continue aspirin Consider GI consult if cardiac etiology r/o ECHO showed -- Conclusions -- * Normal LV chamber size and wall thickness. * Normal LV systolic function, EF 60-65%. * No segmental left ventricular wall motion abnormalities are noted. * Normal diastolic function. * No significant valvular pathology. GERD Recent EGD done showed ulcer as per pt Continue PPI and carafate History of bariatric surgery BMI 40.3 Counseling on weight loss DVT px on Lovenox subq CODE STATUS FULL CODE Current Inpatient Medications: Current Inpatient Medications Medications (Trade) Dose Ordered Sig/Crystal Route Start Time Stop Time Status Last Admin Dose Admin Ioversol (Optiray 320) 100 ml UD PRN IV 05/24/17 23:30 05/28/17 23:29 Miscellaneous (Iv Fluids Completed) 1 ea PRN PRN N/A 05/25/17 01:15 05/25/18 01:14 Nicotine (Nicoderm Cq 14MG Patch) 1 patch QAM TD 05/26/17 09:00 06/25/17 08:59 Tramadol HCl (Ultram Tab) not relieved ... Q6H PRN PO 05/25/17 01:45 06/24/17 01:44 05/25/17 05:52 50 MG Miscellaneous (Remove Nicoderm Patch) 1 ea HS N/A 05/25/17 21:00 06/24/17 20:59 Enoxaparin Sodium (Lovenox Inj) 40 mg Q24H SC 05/25/17 08:00 06/24/17 07:59 05/25/17 07:48 40 MG Potassium Chloride/Sodium Chloride 1,000 ml @ 50 mls/hr Q20H IV 05/25/17 02:30 06/24/17 02:29 05/25/17 02:54 50 MLS/HR Nitroglycerin (Nitrostat Tab) 0.4 mg UD PRN SL 05/25/17 02:00 06/24/17 01:59 Multivitamins/ Minerals (Multivitamin W/ Minerals Tab) 1 tab QAM PO 05/25/17 09:00 06/24/17 08:59 05/25/17 07:43 1 TAB Sertraline HCl (Zoloft Tab) 150 mg HS PO 05/25/17 21:00 06/24/17 20:59 Sucralfate (Carafate Tab) 1 gm HS PO 05/25/17 21:00 06/24/17 20:59 Sucralfate (Carafate Tab) 1 gm QID PO 05/25/17 09:00 06/24/17 08:59 05/25/17 07:43 1 GM Clorazepate Dipotassium (Tranxene-T Tab) 22.5 mg HS PO 05/25/17 21:00 06/24/17 20:59 Pantoprazole Sodium (Protonix Tab) 40 mg BID PO 05/25/17 09:00 06/24/17 08:59 05/25/17 07:43 40 MG Hydromorphone HCl (Dilaudid Inj) 0.5 mg Q3H PRN IV 05/25/17 02:00 06/08/17 01:59 Lorazepam (Ativan Inj) 0.5 mg Q1H PRN IV 05/25/17 02:00 06/24/17 01:59 Prochlorperazine Edisylate 5 mg/ Syringe 5 ml @ 5 mls/min Q6H PRN IV 05/25/17 02:00 06/24/17 01:59 Aspirin (Ecotrin Tab) 81 mg QAM PO 05/25/17 09:00 06/24/17 08:59 05/25/17 08:39 81 MG Ranitidine HCl (zANTac TAB) 150 mg BID PO 05/25/17 21:00 06/24/17 20:59
--- NOTE | 2017-05-25 16:11 | DOBUTAMINE ECHO ---
*NOTICE TO RECEIVING LIBERTARIAN AGENCY This information is strictly Confidential and protected under [place] law. [place] law prohibits you from making any further disclosure of this information unless further disclosure is expressly permitted by the written consent of the person to whom it pertains or is authorized by law. A general authorization for the release of medical or other information is not sufficient for this purpose. Hospital accepts no responsibility if the information is made available to any other person, INCLUDING THE PATIENT. Interpretation Summary * Name: SOPHIA BOWERS Study Date: 05/25/2017 12:45 PM BP: 148/67 mmHg * Patient Location: [facility]\S\N275\S\2 HR: 59 * : 1975 (M/d/yyyy) Gender: Female Height: 60 in * Age: 42 yrs Ethnicity: CA Weight: 213 lb * Ordering Physician: Zulema Graves * Referring Physician: Self, Referred * Performed By: Ligia Reed RDCS * * Reason For Study: Chest Pain * BSA: 1.9 m2 * STRESS STUDY: Normal pharmacologic stress echocardiogram. No echocardiographic or ECG evidence of myocardial ischemia having achieved heart rate adequate for diagnostic purposes. Procedure Details * DOBUTAMINE ECHO, CPT#03742 * A contrast injection of Definity was performed to improve assessment of LV function. * One vial of Definity ultrasound contrast was diluted in normal saline to a total volume of 10 ml. A total of '6' ml of solution was administered during imaging. * Lot # [id number] of Definity utilized for procedure. * Expiration date 1A9. * The attending nurse who injected the contrast agent was Mariah Luque RN. Left Ventricle * The left ventricle is normal in size. * There is normal left ventricular wall thickness. * Ejection Fraction = 60-65%. * Resting wall motion: Normal. Stress wall motion: Appropriate increase in Left ventricular systolic function and decrease in cavity size. No stress induced segmental wall motion abnormalities. Stress Parameters * The baseline ECG displays normal sinus rhythm. * Stress ECG: No ST changes. No arrhythmias. * The stress portion of this study was personally supervised by the undersigned interpreting physician. * Rest heart rate was '59' BPM. * Rest blood pressure was '148/67' * Maximum heart rate achieved was 166 bpm. * Maximum heart rate was 94 % of maximum age-predicted heart rate. * Maximum blood pressure was '221/79' * Maximum Dobutamine infusion rate was '30' mcg/kg/min. * A total of 0.5 mg of intravenous Atropine was used to supplement Dobutamine for heart rate response. * Dobutamine infusion was terminated due to achieving target heart rate * A total of 10 mg of IV Metoprolol was administered to reverse Dobutamine-induced tachycardia. * The patient exhibited a hypertensive response with stress.
[2017-05-25] MEDS: RANITIDINE HCL 150 MG TAB PO SCH (21:00)
[2017-05-25] MEDS ORDERED: SERTRALINE HCL 100 MG TAB PO SCH (21:00)
[2017-05-25] MEDS ORDERED: SUCRALFATE 1 GM TAB PO SCH (21:00)
[2017-05-25] MEDS ORDERED: CLORAZEPATE DIPOTASSIUM 3.75 MG TAB PO SCH (21:00)
[2017-05-26 03:50] VITALS: BP 99/61; PULSE 51; TEMP 36.9; O2SAT 96
[2017-05-26 07:23] VITALS: BP 148/93; PULSE 68; TEMP 36.7; O2SAT 95
[2017-05-26] MEDS: PANTOprazole SOD 40 MG TAB PO SCH (07:35)
[2017-05-26] MEDS: CEROVITE ADV FORMULA TAB PO SCH (07:35)
[2017-05-26] MEDS: RANITIDINE HCL 150 MG TAB PO SCH (07:35)
[2017-05-26] MEDS: SUCRALFATE 1 GM TAB PO SCH (07:35)
[2017-05-26] MEDS: ASPIRIN 81 MG ECTAB PO SCH (07:35)
[2017-05-26] MEDS: TRAMADOL HCL 50 MG TAB PO PRN (07:46)
[2017-05-26] MEDS: ENOXAPARIN 40 MG/0.4 ML SYR SC SCH (08:23)
[2017-05-26] MEDS ORDERED: NICOTINE 14 MG/24 HR TDSY TD SCH (09:00)
[2017-05-26 10:09] VITALS: BP 148/93; PULSE 68; TEMP 36.7; O2SAT 95
--- NOTE | 2017-05-26 11:10 | Progress Note ---
Medicine Progress Note Date & Time of Visit: May 26, 2017 at 10:51. Subjective Pt was seen and examined Lying in bed comfortable with no distress Pt said that pain improve in her mid sternal area Pt said that in the last few days she weaned herself off the Carafate She said that the discomfort started a few days after she stopped taking the Carafate Pt had a dobutamine stress test done that was normal Pt worked with Dr. Neal the gastroenterology in [place] She said that she would see Dr. Neal on Monday at work She said that she had a repeat EGD schedule on June 27 with GI Denies any nausea, palpitation, dizziness and SOB Objective Last 8 Hrs Date Time Temp Pulse Resp B/P (MAP) Pulse Ox O2 Delivery O2 Flow Rate FiO2 05/26/17 10:09 36.7 68 18 95 Room Air 05/26/17 08:00 Room Air 05/26/17 07:23 36.7 68 18 148/93 (111) 95 Room Air 05/26/17 04:00 Room Air 05/26/17 03:50 36.9 51 16 99/61 (74) 96 Room Air Physical Exam: General- No acute distress Head- atraumatic Eyes- PERRL, EOMI ENT- oropharynx clear Neck- supple, no JVD Lungs- clear to auscultation Heart- regular rhythm Abdomen- normal bowel sounds, soft, obese Extremities- no calf tenderness Neuro- alert, oriented x 3; PERRL, EOMI Assessment & Plan Chest Pain. Seems like atypical in nature Mostly related To GERD Cardiac work up negative EKG showed no ischemic changes Troponinx3 negative CTA chest showed no PE Normal pharmacologic dobutamine stress echocardiogram done No echocardiographic or ECG evidence of myocardial ischemia having achieved heart rate adequate for diagnostic purposes. Case discussed with Cardiology and stated chest discomfort is non cardiac etiology Pt will follow with GI Dr. Neal in [place] ( She worked with him) ECHO showed -- Conclusions -- * Normal LV chamber size and wall thickness. * Normal LV systolic function, EF 60-65%. * No segmental left ventricular wall motion abnormalities are noted. * Normal diastolic function. * No significant valvular pathology. GERD Recent EGD done showed ulcer as per pt Pt had wean herself off carafate in the past weeks She said that chest discomfort started few days after stop taking the carafate Recommended pt to continue carafate and protonix Follow up with GI (She has a repeat EGD schedule as an outpatient) Advised if she develops any GI bleed to seek for medical attention. History of bariatric surgery BMI 40.3 Counseling on weight loss Tobacco abuse Counseling on smoking cessation On nicotine patch DVT px on Lovenox subq CODE STATUS FULL CODE Disposition Will discharge home today Consultants: Cardio Current Inpatient Medications: Current Inpatient Medications Medications (Trade) Dose Ordered Sig/Crystal Route Start Time Stop Time Status Last Admin Dose Admin Ioversol (Optiray 320) 100 ml UD PRN IV 05/24/17 23:30 05/28/17 23:29 Miscellaneous (Iv Fluids Completed) 1 ea PRN PRN N/A 05/25/17 01:15 05/25/18 01:14 Nicotine (Nicoderm Cq 14MG Patch) 1 patch QAM TD 05/26/17 09:00 06/25/17 08:59 05/26/17 07:36 1 PATCH Tramadol HCl (Ultram Tab) not relieved by tylenol @ `ONE-HALF-... Q6H PRN PO 05/25/17 01:45 06/24/17 01:44 05/26/17 07:46 50 MG Miscellaneous (Remove Nicoderm Patch) 1 ea HS N/A 05/25/17 21:00 06/24/17 20:59 05/25/17 20:55 1 EA Enoxaparin Sodium (Lovenox Inj) 40 mg Q24H SC 05/25/17 08:00 06/24/17 07:59 05/26/17 08:23 40 MG Potassium Chloride/Sodium Chloride 1,000 ml @ 50 mls/hr Q20H IV 05/25/17 02:30 06/24/17 02:29 05/25/17 21:54 50 MLS/HR Nitroglycerin (Nitrostat Tab) 0.4 mg UD PRN SL 05/25/17 02:00 06/24/17 01:59 Multivitamins/ Minerals (Multivitamin W/ Minerals Tab) 1 tab QAM PO 05/25/17 09:00 06/24/17 08:59 05/26/17 07:35 1 TAB Sertraline HCl (Zoloft Tab) 150 mg HS PO 05/25/17 21:00 06/24/17 20:59 05/25/17 20:58 150 MG Sucralfate (Carafate Tab) 1 gm QID PO 05/25/17 09:00 06/24/17 08:59 05/26/17 07:35 1 GM Clorazepate Dipotassium (Tranxene-T Tab) 22.5 mg HS PO 05/25/17 21:00 06/24/17 20:59 05/25/17 21:53 22.5 MG Pantoprazole Sodium (Protonix Tab) 40 mg BID PO 05/25/17 09:00 06/24/17 08:59 05/26/17 07:35 40 MG Hydromorphone HCl (Dilaudid Inj) 0.5 mg Q3H PRN IV 05/25/17 02:00 06/08/17 01:59 Lorazepam (Ativan Inj) 0.5 mg Q1H PRN IV 05/25/17 02:00 06/24/17 01:59 Prochlorperazine Edisylate 5 mg/ Syringe 5 ml @ 5 mls/min Q6H PRN IV 05/25/17 02:00 06/24/17 01:59 Aspirin (Ecotrin Tab) 81 mg QAM PO 05/25/17 09:00 06/24/17 08:59 05/26/17 07:35 81 MG Ranitidine HCl (zANTac TAB) 150 mg BID PO 05/25/17 21:00 06/24/17 20:59 05/26/17 07:35 150 MG
--- NOTE | 2017-05-26 11:14 | Progress Note ---
Medicine Progress Note Date & Time of Visit: May 26, 2017 at 11:13. Objective Last 8 Hrs Date Time Temp Pulse Resp B/P (MAP) Pulse Ox O2 Delivery O2 Flow Rate FiO2 05/26/17 10:09 36.7 68 18 95 Room Air 05/26/17 08:00 Room Air 05/26/17 07:23 36.7 68 18 148/93 (111) 95 Room Air 05/26/17 04:00 Room Air 05/26/17 03:50 36.9 51 16 99/61 (74) 96 Room Air Physical Exam: General- No acute distress Head- atraumatic Eyes- PERRL, EOMI ENT- oropharynx clear Neck- supple, no JVD Lungs- clear to auscultation Heart- regular rhythm Abdomen- normal bowel sounds, soft, obese Extremities- no calf tenderness Neuro- alert, oriented x 3; PERRL, EOMI Assessment & Plan Chest Pain. Seems like atypical in nature Mostly related To GERD Cardiac work up negative EKG showed no ischemic changes Troponinx3 negative CTA chest showed no PE Normal pharmacologic dobutamine stress echocardiogram done No echocardiographic or ECG evidence of myocardial ischemia having achieved heart rate adequate for diagnostic purposes. Case discussed with Cardiology and stated chest discomfort is non cardiac etiology Pt will follow with GI Dr. Neal in [place] ( She worked with him) ECHO showed -- Conclusions -- * Normal LV chamber size and wall thickness. * Normal LV systolic function, EF 60-65%. * No segmental left ventricular wall motion abnormalities are noted. * Normal diastolic function. * No significant valvular pathology. GERD Recent EGD done showed ulcer as per pt Pt had wean herself off carafate in the past weeks She said that chest discomfort started few days after stop taking the carafate Recommended pt to continue carafate and protonix Follow up with GI (She has a repeat EGD schedule as an outpatient) Advised if she develops any GI bleed to seek for medical attention. History of bariatric surgery BMI 40.3 Counseling on weight loss Tobacco abuse Counseling on smoking cessation On nicotine patch Chronic pain On tramadol Stable DVT px on Lovenox subq CODE STATUS FULL CODE Disposition Will discharge home today Consultants: Cardio Current Inpatient Medications: Current Inpatient Medications Medications (Trade) Dose Ordered Sig/Crystal Route Start Time Stop Time Status Last Admin Dose Admin Ioversol (Optiray 320) 100 ml UD PRN IV 05/24/17 23:30 4/1/18 23:29 Miscellaneous (Iv Fluids Completed) 1 ea PRN PRN N/A 05/25/17 01:15 05/25/18 01:14 Nicotine (Nicoderm Cq 14MG Patch) 1 patch QAM TD 05/26/17 09:00 06/25/17 08:59 05/26/17 07:36 1 PATCH Tramadol HCl (Ultram Tab) not relieved by tylenol @ `ONE-HALF-... Q6H PRN PO 05/25/17 01:45 06/24/17 01:44 05/26/17 07:46 50 MG Miscellaneous (Remove Nicoderm Patch) 1 ea HS N/A 05/25/17 21:00 06/24/17 20:59 05/25/17 20:55 1 EA Enoxaparin Sodium (Lovenox Inj) 40 mg Q24H SC 05/25/17 08:00 06/24/17 07:59 05/26/17 08:23 40 MG Potassium Chloride/Sodium Chloride 1,000 ml @ 50 mls/hr Q20H IV 05/25/17 02:30 06/24/17 02:29 05/25/17 21:54 50 MLS/HR Nitroglycerin (Nitrostat Tab) 0.4 mg UD PRN SL 05/25/17 02:00 06/24/17 01:59 Multivitamins/ Minerals (Multivitamin W/ Minerals Tab) 1 tab QAM PO 05/25/17 09:00 06/24/17 08:59 05/26/17 07:35 1 TAB Sertraline HCl (Zoloft Tab) 150 mg HS PO 05/25/17 21:00 06/24/17 20:59 05/25/17 20:58 150 MG Sucralfate (Carafate Tab) 1 gm QID PO 05/25/17 09:00 06/24/17 08:59 05/26/17 07:35 1 GM Clorazepate Dipotassium (Tranxene-T Tab) 22.5 mg HS PO 05/25/17 21:00 06/24/17 20:59 05/25/17 21:53 22.5 MG Pantoprazole Sodium (Protonix Tab) 40 mg BID PO 05/25/17 09:00 06/24/17 08:59 05/26/17 07:35 40 MG Hydromorphone HCl (Dilaudid Inj) 0.5 mg Q3H PRN IV 05/25/17 02:00 06/08/17 01:59 Lorazepam (Ativan Inj) 0.5 mg Q1H PRN IV 05/25/17 02:00 06/24/17 01:59 Prochlorperazine Edisylate 5 mg/ Syringe 5 ml @ 5 mls/min Q6H PRN IV 05/25/17 02:00 06/24/17 01:59 Aspirin (Ecotrin Tab) 81 mg QAM PO 05/25/17 09:00 06/24/17 08:59 05/26/17 07:35 81 MG Ranitidine HCl (zANTac TAB) 150 mg BID PO 05/25/17 21:00 06/24/17 20:59 05/26/17 07:35 150 MG
[2017-05-26] MEDS ORDERED: ULT50X PO ×2 (11:19→11:29)
--- NOTE | 2017-05-26 11:41 | Discharge Instructions ---
Discharge Instructions Date of Service May 26, 2017. Admission Reason for Admission: Chest Pain Discharge Discharge Diagnosis / Problem: Atypical Chest pain, GERD, Tobacco abuse Discharge Goals Goal(s): Decrease discomfort, Improve function, Improve disease control Activity Recommendations Activity Limitations: resume your previous activity (as tolerated) . Instructions / Follow-Up Instructions / Follow-Up Please call your primary care provider to schedule a follow up appointment within 1 week Follow up with your Gastroenterology Dr. Neal Smoking cessation Do not drive or operate any machine after taking the tramadol Please follow a GERD diet by avoiding citrus, orange, grapefruit, coffee, chocolate, mint, alcohol, high fat desert, black pepper, tomato sauce, fried and creamed vegetables Seek medical attention if you develop any bleeding (such as blood in your stool or coughing up blood) or if symptoms worsening. Avoid lie down or bend over within the first 1-2 hr after eating. Avoid chew gum or suck on hard candy. Current Hospital Diet Patient's current hospital diet: AHA Diet (Heart Healthy) Discharge Diet Recommended Diet: AHA Diet (Heart Healthy) Pending Studies Studies pending at discharge: no Laboratory Results Lipid Panel Test 05/25/17 05:21 Range/Units Triglycerides Level 102 0-150 mg/dl Cholesterol Level 170 0-200 mg/dl HDL Cholesterol 34 mg/dl Cholesterol/HDL Ratio 5.0 LDL Cholesterol, Calculated 116 mg/dl Medical Emergencies . Who to Call and When: Medical Emergencies: If at any time you feel your situation is an emergency, please call 911 immediately. . Non-Emergent Contact Non-Emergency issues call your: Primary Care Provider, Tipple Supervisor Call Non-Emergent contact if: your pain is not controlled, you have any medication questions . . "Provider Documentation" section prepared by Haider Sarabia. . [place] Drug Monitoring Program Search Results: patient reviewed within database
[2017-05-26 11:42] VITALS: BP 134/84; PULSE 50; TEMP 36.7; O2SAT 93
--- NOTE | 2017-05-27 18:05 | Discharge Summary ---
Discharge Summary Date of Service May 27, 2017. Discharge Summary Admission Date: May 25, 2017 at 00:45 Discharge Date: May 26, 2017 Discharge Disposition: Home Principal Diagnosis: Atypical chest pain Secondary Diagnoses/Problems: GERD Tobacco abuse Chronic pain Procedures: [~ rep ct add3]] CT ANGIOGRAM OF THE CHEST CLINICAL HISTORY: Atypical chest pain COMPARISON STUDY: 09/19/2013 TECHNIQUE: Following the IV administration of 93 mL of [id number]-320, CT angiogram of the thorax was performed from the thoracic inlet to the lung bases utilizing the pulmonary embolus protocol. Images are reviewed in the axial, sagittal, and coronal planes. IV contrast was administered without complication. MIP imaging was performed. A dose lowering technique was utilized adhering to the principles of ALARA. CT DOSE: FINDINGS: No pathologically enlarged axillary mediastinal or hilar lymph nodes were visualized. There was no evidence of thoracic aortic dilatation. There were no pulmonary artery filling defects to indicate acute pulmonary embolism. There is dilatation of the main pulmonary artery segment. This may indicate pulmonary arterial hypertension. No pleural effusions are visualized. There are mild dependent atelectatic changes. There is respiratory motion artifact. There is no focal pulmonary consolidation. There are postsurgical changes of a prior gastric bypass. There is a 9 mm right lobe thyroid nodule. There is an indeterminate 15 mm hypodensity within the spleen. There is an 8 mm fat-containing lesion within the kidney likely representing an angiomyolipoma IMPRESSION: 1. No evidence of acute pulmonary embolism 2. Dilatation of the main pulmonary artery measuring 37 mm. This may indicate partial hypertension. 3. Nonspecific 15 mm hypodensity within the spleen 4. Partially visualized 8 mm fat-containing lesion within the kidney likely representing an angiomyolipoma Electronically signed by: Clem Nair M.D. 05/25/2017 7:01 AM Dictated Date/Time: 05/25/2017 6:57 AM CHEST ONE VIEW PORTABLE CLINICAL HISTORY: CHEST PAIN dyspnea COMPARISON STUDY: 02/23/2017 FINDINGS: The bones soft tissues and hemidiaphragms are normal. The cardiomediastinal silhouette is normal. The lungs are clear. The pulmonary vasculature is normal. IMPRESSION: Negative chest. The above report was generated using voice recognition software. It may contain grammatical, syntax or spelling errors. Electronically signed by: Franklyn Oropeza M.D. 05/25/2017 6:36 AM Dictated Date/Time: 05/25/2017 6:35 AM Consultations: Cardio Medication Reconciliation New Medications: Tramadol HCl (Tramadol HCl) 50 Mg Tab 50 MG PO Q12 PRN for Pain for 5 Days, #10 TAB Please hold for lethargy and drowsiness Continued Medications: Cholecalciferol (Vitamin D3 Ultra Strength) 5,000 Unit Cap 2 CAP PO QAM Clorazepate Dipotassium (Clorazepate Dipotassium) 7.5 Mg Tab 3 TABS PO HS Cyanocobalamin (Vitamin B-12) 2,500 Mcg Subl 2 TABS PO QAM Estrogens, Conjugated (Premarin) 0.625 Mg Tab 0.625 MG PO HS, TAB Lamotrigine (Lamictal) 100 Mg Tab 100 MG PO HS Multiple Vitamins W/ Minerals (Hair/Skin/Nails/Biotin) 1 Tab Tab 4 TABS PO QAM gummies Omeprazole (Omeprazole Dr) 40 Mg Cap 40 MG PO BID Pediatric Multiple Vitamin W/ (Flintstones Chewable) 1 Chw Chw 2 TAB PO QAM, TAB Pyridoxine (Vitamin B6) 100 Mg Tab 200 MG PO QAM, TAB Sertraline Hcl (Zoloft) 100 Mg Tab 150 MG PO HS Sucralfate (Carafate) 1 Gm Tab 1 TAB PO QID, 1 Refill Sucralfate (Carafate) 1 Gm Tab 1 TAB PO HS Admission Information HPI (per Admitting provider): CHIEF COMPLAINT: Chest pain. HISTORY OF PRESENT ILLNESS: History obtained from the patient and records. Medical history significant for mood/anxiety disorder, ongoing tobacco abuse, chronic bradycardia, peptic ulcer disease, history of MRSA, gastric bypass surgery, BERNICE (not requiring appliance since bariatric surgery) Patient had a recent EGD about 2 months ago which showed ulcers. Patient currently on home PPI, sucralfate regimen. Two days ago, patient noted left-sided chest discomfort going to the LUE and back, some shortness of breath, burning and pleuritic in quality, intermittent symptoms. Patient was seen at the ER at [facility] a few days ago. No PE or perforated stomach on imaging as per records. Patient sent home. Intermittent chest pain symptoms, not related to exertion. No unusual stress at home. 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 Her GI specialist scheduled her for repeat EGD in Jun, 2017. At the Emergency Room, patient given Aspirin. Improvement of chest pain with nitro and GI cocktail. Physical Exam (per Admitting): PHYSICAL EXAMINATION: VITAL SIGNS: Blood pressure was noted to be 138/96, pulse 55, respiratory rate 14, temperature 36.7, sats 94 on room air. GENERAL: Noted to be anxious, obese, no respiratory distress. SKIN: Normal color, warm. HEENT: [place] palpebral conjunctivae. No ptosis. Dry mucosa. NECK: Short neck. Supple. CHEST: Decreased breath sounds. No tenderness. HEART: Bradycardic. No murmur. ABDOMEN: Soft, distention, nontender. EXTREMITIES: Minimal LE edema, no tenderness. No gross deformities. NEUROLOGIC: Coherent. No gross focality. Hospital Course Chest Pain. Seems like atypical in nature Mostly related To GERD Cardiac work up negative EKG showed no ischemic changes Troponinx3 negative CTA chest showed no PE Normal pharmacologic dobutamine stress echocardiogram done No echocardiographic or ECG evidence of myocardial ischemia having achieved heart rate adequate for diagnostic purposes. Case discussed with Cardiology and stated chest discomfort is non cardiac etiology Pt will follow with GI Dr. Neal in [place] ( She worked with him) ECHO showed -- Conclusions -- * Normal LV chamber size and wall thickness. * Normal LV systolic function, EF 60-65%. * No segmental left ventricular wall motion abnormalities are noted. * Normal diastolic function. * No significant valvular pathology. GERD Recent EGD done showed ulcer as per pt Pt had wean herself off carafate in the past weeks She said that chest discomfort started few days after stop taking the carafate Recommended pt to continue carafate and protonix Follow up with GI (She has a repeat EGD schedule as an outpatient) Advised if she develops any GI bleed to seek for medical attention. History of bariatric surgery BMI 40.3 Counseling on weight loss Tobacco abuse Counseling on smoking cessation On nicotine patch Chronic pain On tramadol Stable DVT px on Lovenox subq CODE STATUS FULL CODE Disposition Will discharge home today Total time spent on discharge = 35 minutes This includes examination of the patient, discharge planning, medication reconciliation, and communication with other providers. Discharge Instructions Discharge Instructions Date of Service May 26, 2017. Admission Reason for Admission: Chest Pain Discharge Discharge Diagnosis / Problem: Atypical Chest pain, GERD, Tobacco abuse Discharge Goals Goal(s): Decrease discomfort, Improve function, Improve disease control Activity Recommendations Activity Limitations: resume your previous activity (as tolerated) . Instructions / Follow-Up Instructions / Follow-Up Please call your primary care provider to schedule a follow up appointment within 1 week Follow up with your Gastroenterology Dr. Neal Smoking cessation Do not drive or operate any machine after taking the tramadol Please follow a GERD diet by avoiding citrus, orange, grapefruit, coffee, chocolate, mint, alcohol, high fat desert, black pepper, tomato sauce, fried and creamed vegetables Seek medical attention if you develop any bleeding (such as blood in your stool or coughing up blood) or if symptoms worsening. Avoid lie down or bend over within the first 1-2 hr after eating. Avoid chew gum or suck on hard candy. Current Hospital Diet Patient's current hospital diet: AHA Diet (Heart Healthy) Discharge Diet Recommended Diet: AHA Diet (Heart Healthy) Pending Studies Studies pending at discharge: no Laboratory Results Lipid Panel Test 05/25/17 05:21 Range/Units Triglycerides Level 102 0-150 mg/dl Cholesterol Level 170 0-200 mg/dl HDL Cholesterol 34 mg/dl Cholesterol/HDL Ratio 5.0 LDL Cholesterol, Calculated 116 mg/dl Medical Emergencies . Who to Call and When: Medical Emergencies: If at any time you feel your situation is an emergency, please call 911 immediately. . Non-Emergent Contact Non-Emergency issues call your: Primary Care Provider, Concession Cashier Call Non-Emergent contact if: your pain is not controlled, you have any medication questions . . "Provider Documentation" section prepared by Haider Sarabia. . [place] Drug Monitoring Program Search Results: patient reviewed within database Additional Copies To Lana Smith D.O., Richard M.D.
== END 2017-05-26 13:00 | disposition home or self-care (01) ==
LOC: C.EDB 19:35 → C.MED 05-25 00:45 → ENRESERV 05-25 01:16
PROVIDERS: ADMIT Internal Medicine; ATTEND Internal Medicine
DX: R07.89 Other chest pain (principal); K21.9 Gastro-esophageal reflux disease without esophagitis; F17.200 Nicotine dependence, unspecified, uncomplicated; G89.29 Other chronic pain; K25.9 Gastric ulcer, unspecified as acute or chronic, without hemorrhage or perforation; Z98.84 Bariatric surgery status; Z88.0 Allergy status to penicillin; Z88.5 Allergy status to narcotic agent; Z88.6 Allergy status to analgesic agent; Z86.14 Personal history of Methicillin resistant Staphylococcus aureus infection; Z82.49 Family history of ischemic heart disease and other diseases of the circulatory system